=== PATIENT | female | born 1975 | race Caucasian/White ===

== ENCOUNTER 2016-12-29 07:05 | Day surgery (SDC) | payer BC ==
[2016-12-29] VITALS (31 sets, daily range): BP systolic 99–144; BP diastolic 54–89; PULSE 82–117; RESP 16–32; TEMP 96.7–98.5; O2SAT 95–100; Ht 152.4 cm; Wt 66.7 kg
[~2016-12-29] VITALS: Ht 152.4 cm; Wt 66.7 kg
[~2016-12-29 07:05] MED LIST: ALPR0.5T PO; IBUP-1724 PO; LIDOCAINE 1% (10mg/ml) 2ml SDV INJ ONE; LR 1,000 ML IV SCH
--- OUTSIDE RECORDS SUMMARY | 2016-12-29 07:13 | XMS REPORT | Summary of Care ---
Author Author Kira Santiago, Anamaria Organization Unknown Address [address] [place], [place] [id number] Phone Unavailable Care Team Providers Care Elastic Yarn Twister Helper Name Role Phone Mulu Ferris M.D. Unavailable Unavailable Anamaria Malone M.D. Unavailable Unavailable Adonay Ferris PP Unavailable Unavailable Unavailable Functional Status Functional Status Health Issues* Name Dates Details Functional status health issues are not documented Status: Cognitive Status Health Issues* Name Dates Details Cognitive status health issues are not documented Status: Problems Name Dates Details Adenoid hypertrophy (474.12, J35.2) Status: Active Chronic otitis media (382.9, H66.90) Status: Active Eustachian tube dysfunction (381.81, H69.80) Status: Active Hypertrophy of nasal turbinates (478.0, J34.3) Status: Active Cervicalgia (723.1, M54.2) Status: Active Cervical neuritis (723.4, M54.12) Status: Active Lump of breast, left (611.72, N63) Status: Active Abnormal uterine bleeding (626.9, N93.9) Status: Active Urinary, incontinence, stress female (625.6, N39.3) Status: Active Preoperative examination (V72.84, Z01.818) Status: Active Medications Name Dates Details Xanax 0.5 MG Oral Tablet TAKE 1/2 TO 1 TABLET BY MOUTH EVERY 6 HOURS NEEDED FOR ANXIETY Quantity: 24 Adonay Ferris M.D.* Started 18-May-2014 ActiveOrtho-Cyclen (28) 0.25-35 MG-MCG Oral Tablet Take one pill Three times daily x5 days, Then 1 pill twice daily for 7 days then pill until all active pills are gone * Quantity: 2 Refills: 0 Anamaria Malone M.D.* Started 28-Aug-2014 [id number] Tablet Disp Pack Ondansetron 4 MG Oral Tablet Dispersible 1 po q 8 hrs PRN * Quantity: 10 Refills: 0 Anamaria Malone M.D.* Started 28-Aug-2014 Active Allergies and Adverse Reactions Name Dates Details Latex Gloves MISC Status: Active Penicillins Status: Active Past Medical History Name Dates Details History of urinary tract infection (V13.02, Z87.440) Status: Resolved Procedures Procedure Dates Details History of Adenoidectomy History of Turbinectomy History of Ear Pressure Equalization Tube, Insertion, General Anesthesi History of Dilation And Curettage History of Biopsy Ovarian History of Appendectomy URINE CULTURE 5010 Ordered:28-Aug-2014 Urinalysis, Reflex to Microscopic or Culture PRN 8005 Ordered:28-Aug-2014 ULTRASOUND BREAST LEFT Ordered:23-Aug-2014 MAMMOGRAM-DIAG UNILATERAL FOR LUMP PAIN Ordered:23-Aug-2014 Immunization Name Dates Details Tdap (Adacel) Lot #: [id number] Administered on:23-Mar-2014 PPD Lot #: [id number] Administered on:17-Apr-2014 PPD Administered on:17-Apr-2014 Fluzone Quadrivalent 0.5 ML Intramuscular Suspension Lot #: [id number] Administered on:18-May-2014 Family History Unknown Family Member* Name Dates Details Family history of Alcohol addiction (303.90, F10.20) Comments: Family History Status: Active Family history of colon cancer (V16.0, Z80.0) Comments: Family History Status: Active Family history of lung cancer (V16.1, Z80.1) Comments: Family History Status: Active Mother* Name Dates Details Family history of malignant neoplasm of cervix uteri (V16.49, Z80.49) Status: Active Social History Name Dates Details Smoking Status* Former smoker Vital Signs Date Test Result Details 28-Aug-2014 13:37 BP Systolic 124 mm[Hg] Status: BP Diastolic 80 mm[Hg] Status: Weight 159.25 lb Status: Body Mass Index Calculated 30.09 kg/m2 Status: Body Surface Area Calculated 1.71 m2 Status: 23-Aug-2014 11:19 BP Systolic 115 mm[Hg] Status: BP Diastolic 73 mm[Hg] Status: Weight 157 lb Status: Height 61 in Status: Body Mass Index Calculated 29.67 kg/m2 Status: Body Surface Area Calculated 1.7 m2 Status: Results Date Description Value Details 28-Aug-2014 14:05 URINE TEST 8010 URINE TEST Negative (Better) Plan of Care Planned Observations* Name Dates Details Planned Goals not documented Goal Planned Encounters* Appointment; Provider: Anamaria Malone On 04-Sep-2014 14:45 * Appointment; Provider: Latoya Serna On 04-Sep-2014 13:45 Instructions * Instructions not documented Encounters Appointment; Anamaria Malone Encounter Diagnosis: Problem not documented On 28-Aug-2014 13:15 Appointment; Anamaria Malone Encounter Diagnosis: Problem not documented On 23-Aug-2014 11:00 Appointment; Ivory Trammell Encounter Diagnosis: Problem not documented On 18-May-2014 16:15 Appointment; Adonay Ferris Encounter Diagnosis: Problem not documented On 18-May-2014 15:00 Appointment; Adonay Ferris Encounter Diagnosis: Problem not documented On 17-Apr-2014 07:45 Appointment; Adonay Ferris Encounter Diagnosis: Problem not documented On 23-Mar-2014 08:00 Appointment; Adonay Ferris Encounter Diagnosis: Problem not documented On 20-Mar-2014 09:30 Appointment; Adonay Ferris Encounter Diagnosis: Problem not documented On 10:30 Appointment; Ramin Peña Encounter Diagnosis: Problem not documented On 15:15 Appointment; Bairon Bee Encounter Diagnosis: Problem not documented On 13:15 Appointment; Shamar De Dios Encounter Diagnosis: Problem not documented On 24-Dec-2013 12:30
--- OUTSIDE RECORDS SUMMARY | 2016-12-29 07:13 | XMS REPORT | Continuity of Care Document ---
Author Author [facility] Address Unknown Phone Unavailable Support Name Relationship Address Phone ERICK TOM MD Caregiver [address] [place] [address] NORMA OLEARY Next Of Kin [address] [place] [address] Insurance Providers Payer Name Policy Number Subscriber Name Relationship Workmans Comp Other [id number] [employer] Employ[employer] Problems Active Problems Medical Problem Onset Date Status Low back pain Unknown Acute Medications Current Home Medications Medication Dose Units Route Directions Days/Qty Instructions Start Date Alprazolam (Xanax) 0.5 Mg 0.5 Mg ORAL As Needed 09/01/16 Social History No social history. Hospital Discharge Instructions Current inpatient/outpatient. Discharge instructions are currently unavailable. Plan of Care Prescriptions Functional Status No functional status results. Allergies, Adverse Reactions, Alerts Allergen Type Severity Reaction Status Last Updated Penicillin Allergy Severe anaphylaxis Active 09/01/16 Azithromycin Allergy Mild Rash Active 09/01/16 latex Allergy Mild Rash Active 09/01/16 Immunizations No immunization records. Vital Signs Acute Vital Signs Vital Response Date/Time Temperature (Fahrenheit) 97.9 09/01/2016 4:41am Pulse 94 bpm 09/01/2016 4:41am Respirations 18 09/01/2016 4:41am Results No known relevant diagnostic tests, laboratory data and/or discharge summary. Procedures No known history of procedures. Encounters Encounter Location Arrival/Admit Date Discharge/Depart Date Attending Provider Registered Referred [facility] 09/01/16 3:23am ERICK TOM MD Departed Emergency Room [facility] 09/01/16 3:20am 09/01/16 4:43am ERICK TOM MD
--- OUTSIDE RECORDS SUMMARY | 2016-12-29 07:13 | XMS REPORT | Summary of Care ---
Author Author Kira Santiago, Anamaria Organization Unknown Address Unknown Phone Unavailable Care Team Providers Care Pin Machine Operator Name Role Phone Mulu Ferris M.D. Unavailable Unavailable Anamaria Malone M.D. Unavailable Unavailable Gerardo Aranda M.D. Unavailable Unavailable No Assigned PCP-Pt Confirmed Unavailable Unavailable Unavailable Unavailable Functional Status Name Dates Details Functional status health issues are not documented Status: Name Dates Details Cognitive status health issues are not documented Status: Problems Name Dates Details Adenoid hypertrophy (474.12, J35.2) Status: Active Chronic otitis media (382.9, H66.90) Status: Active Eustachian tube dysfunction (381.81, H69.80) Status: Active Hypertrophy of nasal turbinates (478.0, J34.3) Status: Active Cervicalgia (723.1, M54.2) Status: Active Cervical neuritis (723.4, M54.12) Status: Active Urinary, incontinence, stress female (625.6, N39.3) Status: Active Urinary symptom or sign (788.99, R39.9) Status: Active Dysuria (788.1, R30.0) Status: Active Frequency of urination (788.41, R35.0) Status: Active Urinary incontinence (788.30, R32) Status: Active Lump of breast, left (611.72, N63) Status: Active Fibrocystic mastopathy (610.1, N60.19) Status: Active Retention cyst of ovary (620.2, N83.209) Status: Active Bleeding after intercourse (626.7, N93.0) Status: Active Pelvic pain in female (625.9, R10.2) Status: Active Vaginal discharge (623.5, N89.8) Status: Active Menopausal symptoms (627.2, N95.1) Status: Active Medications Name Dates Details Pyridium 100 MG Oral Tablet TAKE 1 TABLET EVERY 6 HOURS NEEDED. Quantity: 20 Anamaria Malone M.D. * Start Active Xanax 0.5 MG Oral Tablet TAKE 1/2 TO 1 TABLET BY MOUTH EVERY 6 HOURS NEEDED FOR ANXIETY * Quantity: 24 Refills: 0 Adonay Ferris M.D. * Start 18-May-2014 Active Percocet 5-325 MG Oral Tablet * Refills: 0 Shefali Aranda M.D. * Start 05-Apr-2015 Active Nitrofurantoin Monohyd Macro 100 MG Oral Capsule TAKE 1 CAPSULE TWICE DAILY. * Quantity: 14 Refills: 0 Anamaria Malone M.D. * Start 18-Apr-2015 Active Allergies and Adverse Reactions Name Dates Details Latex Gloves MISC (Allergy) Status: Active Penicillins (Allergy) Status: Active Past Medical History Name Dates Details History of Abnormal uterine bleeding (626.9, N93.9) Status: Resolved History of menorrhagia (V13.29, Z87.42) Status: Resolved History of urinary tract infection (V13.02, Z87.440) Status: Resolved Procedures Procedure Dates Details History of Adenoidectomy History of Turbinectomy History of Ear Pressure Equalization Tube, Insertion, General Anesthesi History of Dilation And Curettage History of Biopsy Ovarian History of Appendectomy History of Hysterectomy Procedures not documented Immunization Name Dates Details Tdap (Adacel) Lot #: [id number] on: 23-Mar-2014 PPD Lot #: [id number] on: 17-Apr-2014 PPD on: 17-Apr-2014 Fluzone Quadrivalent 0.5 ML Intramuscular Suspension Lot #: [id number] on: 18-May-2014 Family History Name Dates Details Family history of Alcohol addiction (303.90, F10.20) Comments: Family History Status: Active Family history of colon cancer (V16.0, Z80.0) Comments: Family History Status: Active Family history of lung cancer (V16.1, Z80.1) Comments: Family History Status: Active Family history of malignant neoplasm of breast (V16.3, Z80.3) Comments: Family History Status: Active Family history of Ovarian cancer (183.0, C56.9) Comments: Family History Status: Active Name Dates Details Family history of malignant neoplasm of cervix uteri (V16.49, Z80.49) Status: Active Social History Name Dates Details - Status: Name Dates Details Former smoker Vital Signs Date Test Result Details No Known Vitals to report Results Date Description Value Details Results not documented Plan of Care Name Dates Details Planned Observations Planned Goals not documented Instructions Name Dates Details Instructions not documented Encounters Appointment; Anamaria Malone M.D. Encounter Diagnosis: Problem not documented On 11-Apr-2015 11:45 Appointment; Shefali Aranda M.D. Encounter Diagnosis: Problem not documented On 05-Apr-2015 15:15 Appointment; Anamaria Malone M.D. Encounter Diagnosis: Problem not documented On 11:30 Appointment; Ronny Salvador M.D.|Estella|Jack,MURIEL|Jack,MURIEL, Encounter Diagnosis: Problem not documented On 10:45 Appointment; Anamaria Malone M.D. Encounter Diagnosis: Problem not documented On 20-Nov-2014 13:15 Appointment; Hudson Smith M.D.,MURIEL, Encounter Diagnosis: Problem not documented On 08-Nov-2014 12:00 Appointment; Anamaria Malone M.D. Encounter Diagnosis: Problem not documented On 19-Oct-2014 10:15"
--- OUTSIDE RECORDS SUMMARY | 2016-12-29 07:13 | XMS REPORT | Summary of Care ---
Author Author John MCDANIEL, Alicia Organization Unknown Address [address] [place], [place] [address] Phone Unavailable Care Team Providers Care Lead Electrical Controls Engineer Name Role Phone Mulu Ferris M.D. Unavailable Unavailable Adonay Ferris PP Unavailable [...] of breast, left (611.72, N63) Status: Active Urinary, incontinence, stress female (625.6, N39.3) Status: Active Pelvic pain in female (625.9, R10.2) Status: Active Menorrhagia (626.2, N92.0) Status: Active Abnormal uterine bleeding (626.9, N93.9) Status: Active Urinary symptom or sign (788.99, R39.89) Status: Active Ovarian cyst (620.2, N83.20) Status: Active Dysuria (788.1, R30.0) Status: Active Frequency of urination (788.41, R35.0) Status: Active Medications Name Dates Details Xanax 0.5 MG Oral Tablet TAKE 1/2 TO 1 TABLET BY MOUTH EVERY 6 HOURS NEEDED FOR ANXIETY Quantity: 24 Adonay Ferris M.D.* Started 18-May-2014 Active Allergies and Adverse Reactions Name Dates [...] Ovarian History of Appendectomy History of Hysterectomy CYTOLOGY - URINE 4444 Ordered:08-Nov-2014 URINE CULTURE 5010 Ordered:08-Nov-2014 OB Dept- Ultrasound Pelvic Sonogram Ordered:03-Oct-2014 OB Dept- Ultrasound Follow up Pelvic Sonogram Ordered:16-Oct-2014 Immunization Name Dates Details Tdap (Adacel) Lot #: [id number] Administered on:23-Mar-2014 PPD Lot #: [id number] Administered on:17-Apr-2014 PPD Administered on:17-Apr-2014 Fluzone Quadrivalent 0.5 ML Intramuscular Suspension Lot #: [id number] Administered on:18-May-2014 Family History Unknown Family Member* [...] (183.0, C56.9) Comments: Family History Status: Active Mother* Name Dates Details Family history of malignant neoplasm of cervix uteri (V16.49, Z80.49) Status: Active Social History Name Dates Details Smoking Status* Former smoker Vital Signs Date Test Result Details 19-Oct-2014 10:39 BP Systolic 112 mm[Hg] Status: BP Diastolic 76 mm[Hg] Status: Weight 155.25 lb Status: Body Mass Index Calculated 29.33 kg/m2 Status: Body Surface Area Calculated 1.7 m2 Status: Results Date Description Value Details 11-Oct-2014 11:11 Urinalysis, Reflex to Microscopic or Culture PRN 8005 pH 7.5 (Better) Range: 5.0-7.5 SP GRAVITY 1.020 (Better) Range: 1.010-1.030 APPEARANCE CLEAR (Better) Range: Clear COLOR YELLOW (Better) Range: Straw-Yellow PROTEIN NEGATIVE mg/dL (Better) Range: Negative-Trace GLUCOSE NEGATIVE mg/dL (Better) Range: Negative KETONE NEGATIVE mg/dL (Better) Range: Negative BILIRUB NEGATIVE (Better) Range: Negative BLOOD MODERATE (Abnormal) Range: Negative UROBIL 0.2 EU/dL (Better) Range: 0.2-1.0 NITRITE NEGATIVE (Better) Range: Negative LEUK NEGATIVE (Better) Range: Negative 11:11 Urine Microscopic UMIC WBC 0-2 /HPF (Better) Range: 0-5 RBC 3-5 /HPF (Abnormal) Range: 0-2 MUCUS 2+ /LPF (Better) Range: Negative-2+ BACTERIA 1+ /HPF (Abnormal) Range: Negative-Trace EPITH 11-20 /HPF (Abnormal) Range: 0-10 12-Oct-2014 08:14 URINE CULTURE 5010 *URINE CULTURE Microbiology results (Better) Comments: URINE SOURCE: Clean CatchCOLONY COUNT>100,000 cfu/ml. of 3 or more colony types of gram positive bacteria. (SUGGESTIVE OF CONTAMINATION)----- Plan of Care Planned Observations* Name Dates Details Planned Goals not documented Goal Planned Encounters* Appointment; Provider: Hudson Smith On 22-Nov-2014 14:00 * Appointment; Provider: Anamaria Malone On 20-Nov-2014 13:15 * Appointment; Provider: Anamaria Malone On 03-Oct-2014 13:00 Instructions * Instructions not documented Encounters Appointment; Hudson Smith Encounter Diagnosis: Problem not documented On 08-Nov-2014 12:00 Appointment; Anamaria Malone Encounter Diagnosis: Problem not documented On 19-Oct-2014 10:15 Appointment; Anamaria Malone Encounter Diagnosis: Problem not documented On 03-Oct-2014 11:45 Appointment; Latoya Serna Encounter Diagnosis: Problem not documented On 02-Oct-2014 11:00 Appointment; Latoya Serna Encounter Diagnosis: Problem not documented On 13-Sep-2014 09:00 Appointment; Anamaria Malone Encounter Diagnosis: Problem not documented On 12-Sep-2014 14:00 Appointment; Anamaria Malone Encounter Diagnosis: Problem not documented On 01-Sep-2014 07:00 Appointment; Anamaria Malone Encounter Diagnosis: Problem not documented On 28-Aug-2014 13:15 Appointment; Anamaria Malone Encounter Diagnosis: Problem not documented On 23-Aug-2014 11:00 Appointment; Ivory Trammell Encounter Diagnosis: Problem not documented On 18-May-2014 16:15 Appointment; Adonay Ferris Encounter Diagnosis: Problem not documented On 18-May-2014 15:00 Appointment; dAonay Ferris Encounter Diagnosis: Problem not documented On [...]
--- OUTSIDE RECORDS SUMMARY | 2016-12-29 07:13 | XMS REPORT | CCD ---
Author Author JERMAINE DOMINGUEZ Organization Unknown Address [address], [place] [address] Phone 0 Care Team Providers Care Supervisor Research Shop Name Role Phone FELICIANO SALDANA Attending Physician 0 Vital Signs Unknown or Not Available. Allergies Allergy Code Allergy Type Reaction Status PENICILLIN 920238 Drug allergy Active DEMEROL 015327 Drug allergy Active ZITHROMAX 480549 Drug allergy Active Procedures Unknown or Not Available. History of Immunizations Unknown or Not Available. Problems Unknown or Not Available. Results Unknown or Not Available. Active Medications Unknown or Not Available. Medications Administered During Visit Unknown or Not Available. Encounters Encounter Diagnosis Diagnosis Code Start Date Encounter for screening for respiratory tuberculosis Z111 05/13/2016 Social History Smoking Status Code Start Date End Date Unknown if ever smoked [id number] Patient Decision Aids Unknown or Not Available. Discharge Instructions You were admitted to [facility] on 05/13/2016 15:19 with a principal diagnosis of Encounter for screening for respiratory tuberculosis You were discharged from [facility] on 05/13/2016 15:19 Should you have any questions prior to discharge, please contact a member of your healthcare team. If you have left the hospital and have any questions, please contact your primary care physician. Chief Complaint and Reason For Visit Chief Complaint Date of Onset LAB Function Status Unknown or Not Available. Plan of Care Unknown or Not Available. Referral/Transition of Care Unknown or Not Available.
--- OUTSIDE RECORDS SUMMARY | 2016-12-29 07:13 | XMS REPORT | Summary of Care ---
Author Author Kira Santiago, Anamaria Organization Unknown Address [address] [place], [place] [address] Phone Unavailable Care Team Providers Care Database Admin Name Role Phone Mulu Ferris M.D. Unavailable [...] Status: Active Menorrhagia (626.2, N92.0) Status: Active Preoperative examination (V72.84, Z01.818) Status: [...] Refills: 0 Anamaria Malone M.D.* Started 28-Aug-2014 [id number] Tablet Disp Pack Ondansetron 4 MG Oral [...] History of Biopsy Ovarian History of Appendectomy Urinalysis, Reflex to Microscopic or Culture PRN 8005 Ordered:28-Aug-2014 URINE CULTURE 5010 Ordered:28-Aug-2014 MAMMOGRAM-DIAG UNILATERAL FOR LUMP PAIN Ordered:23-Aug-2014 ULTRASOUND BREAST LEFT Ordered:23-Aug-2014 Immunization Name Dates Details Tdap (Adacel) Lot #: [id number] Administered on:23-Mar-2014 PPD Lot #: [id number] Administered on:17-Apr-2014 PPD Administered on:17-Apr-2014 Fluzone Quadrivalent 0.5 ML Intramuscular Suspension Lot #: [id number] Administered on:18-May-2014 Family History Unknown Family Member* [...] Status: Results Date Description Value Details 28-Aug-2014 12:45 OB Dept- Ultrasound Pelvic Sonogram Comments: Exam Date: 11:16Dictation Date: 12:45 XOB PELVIC SONO IN WOMENS ROOM (Better) 14:05 URINE TEST 8010 URINE TEST Negative (Better) 14:54 CBC w/ Auto Diff 7150 WBC 4.7 K/uL (Better) Range: 4.5-11.0 RBC 4.40 mil/uL (Better) Range: 3.60-5.00 HGB 12.9 g/dL (Better) Range: 12.0-16.0 HCT 38.9 % (Better) Range: 36.0-48.0 MCV 88.4 fL (Better) Range: 80.0-99.0 MCH 29.3 pg (Better) Range: 27.3-32.5 MCHC 33.1 % (Better) Range: 32.0-36.0 RDW 13.7 % (Better) Range: 11.6-14.8 PLATELETS 308 K/uL (Better) Range: 150-400 MPV 8.2 fL (Better) Range: 6.0-11.0 %NEUTRO 52.7 % (Better) Range: 37.0-80.0 %LYMPHS 39.5 % (Better) Range: 13.0-50.0 %MONO 3.6 % (Better) Range: 0.0-12.0 %EOS 1.0 % (Better) Range: 0.0-7.0 %BASO 0.4 % (Better) Range: 0.0-2.5 %QUE 2.8 % (Better) Range: 0.0-5.0 NEUTRO 2.5 K/uL (Better) Range: 2.0-6.9 LYMPHS 1.8 K/uL (Better) Range: 0.6-3.4 MONOS 0.2 K/uL (Better) Range: 0.0-0.9 EOS 0.1 K/uL (Better) Range: 0.0-0.7 BASO 0.0 K/uL (Better) Range: 0.0-0.2 15:14 BASIC METABOLIC PROFILE 1210 SODIUM 141 mmol/L (Better) Range: 133-144 POTASSIUM 4.3 mmol/L (Better) Range: 3.5-5.1 CHLORIDE 105 mmol/L (Better) Range: 98-110 CARBON DIOXIDE 26.2 mmol/L (Better) Range: 23.0-33.0 ANION GAP 10 mmol/L (Better) Range: 6-16 BUN 11 mg/dL (Better) Range: 7-18 CREATININE, SERUM 0.55 mg/dL (Better) Range: 0.43-1.13 EST GFR, >60 ml/min (Better) Range: >60 EST GFR, NON-AFR ENGLISH >60 ml/min (Better) Range: >60 Comments: EST GFR is reported in ml/min per 1.73 m2 of body surface area. For -Bhutanese, please multiple result by 1.2.----- BUN:CREATININE RATIO 20 (Better) GLUCOSE 82 mg/dL (Better) Range: 70-100 CALCIUM 8.8 mg/dL (Better) Range: 8.5-10.1 Plan of Care Planned Observations* Name Dates Details Planned Goals not documented Goal Planned Encounters* Appointment; Provider: Anamaria Malone On 04-Sep-2014 14:45 * Appointment; Provider: Latoya Serna On 04-Sep-2014 13:45 * Appointment; Provider: Anamaria Malone On 01-Sep-2014 07:00 Instructions * Instructions not documented Encounters Appointment; [...]
--- OUTSIDE RECORDS SUMMARY | 2016-12-29 07:13 | XMS REPORT | Summary of Care ---
Author Author Ramin Peña M.D. Unknown Address Unknown Phone Unavailable Care Team Providers Care Marine Electronics Technician Name Role Phone Josy Adonay Unavailable Unavailable Unavailable Unavailable Functional Status Functional Status Health Issues* Name Dates Details No known functional status health issues Status: Cognitive Status Health Issues* Name Dates Details No known cognitive status health issues Status: Problems Name Dates Details Adenoid hypertrophy (474.12, J35.2) Status: Active Chronic otitis media (382.9, H66.90) Status: Active Eustachian tube dysfunction (381.81, H69.80) Status: Active Hypertrophy of nasal turbinates (478.0, J34.3) Status: Active Urinary tract infection (599.0, N39.0) Status: Active Medications Name Dates Details Xanax 2 MG Oral Tablet * Started Active Allergies and Adverse Reactions Name Dates Details Penicillins Status: Active Latex Gloves MISC Status: Active Procedures Procedure Dates Details Adenoidectomy Turbinectomy Ear Pressure Equalization Tube, Insertion, General Anesthesi Dilation And Curettage Biopsy Ovarian Urinalysis, Reflex to Microscopic or Culture PRN 8005 Immunization Name Dates Details Immunizations not documented Social History Name Dates Details Former smoker (V15.82, Z87.891) Smoking Status* Former smoker Vital Signs Date Test Result Details 13:14 Heart Rate 81 /min Status: Temperature 98.2 f Status: Weight 142 lb Status: Results Date Description Value Details Results not documented Plan of Care Instructions* Instructions not documented Planned Observations* Name Dates Details Planned Goals not documented Goal Planned Encounters* Appointment; Provider: Adonay Ferris On 10:30 * Appointment; Provider: Ramin Peña On 15:15 Instructions * No Known Instructions Encounters Appointment; Bairon Bee Encounter Diagnosis: Problem not documented On 13:15 Appointment; Shamar De Dios Encounter Diagnosis: Problem not documented On 24-Dec-2013 12:30
--- OUTSIDE RECORDS SUMMARY | 2016-12-29 07:13 | XMS REPORT | Summary of Care ---
Author Author Luis Santiago, FACS, ,, [place] Organization Unknown Address [address], [place] [address] Phone Unavailable Care Team Providers Care Surfboard Maker Name Role Phone Josy Santiago, Mulu Unavailable Unavailable Adonay Ferris PP Unavailable Unavailable [...] Active Urinary incontinence (788.30, R32) Status: Active Medications Name Dates Details Xanax [...] Ovarian History of Appendectomy History of Hysterectomy URINE CULTURE 5010 Ordered:08-Nov-2014 OB Dept- Ultrasound Pelvic Sonogram Ordered:03-Oct-2014 OB Dept- Ultrasound Follow up Pelvic Sonogram Ordered:16-Oct-2014 Immunization Name Dates Details Tdap (Adacel) Lot #: [id number] Administered on:23-Mar-2014 PPD Lot #: [id number] Administered on:17-Apr-2014 PPD Administered on:17-Apr-2014 Fluzone Quadrivalent 0.5 ML Intramuscular Suspension Lot #: [id number] Administered on:18-May-2014 Family History Unknown Family Member* [...] of gram positive bacteria. (SUGGESTIVE OF CONTAMINATION)----- 08-Nov-2014 15:08 CYTOLOGY - URINE 4444 CYTOLOGY Specimen referred to [facility]. Report to follow. (Better) Plan of Care Planned Observations* Name [...]
--- OUTSIDE RECORDS SUMMARY | 2016-12-29 07:13 | XMS REPORT | Summary of Care ---
Author Author Kira Santiago, Anamaria Organization Unknown Address [address], [place] [phone] Phone Unavailable Care Team Providers Care Analysis Analyst Name Role Phone Mulu Ferris M.D. Unavailable [...] symptom or sign (788.99, R39.9) Status: Active Ovarian cyst (620.2, N83.20) Status: Active Dysuria (788.1, R30.0) Status: Active Frequency of urination (788.41, R35.0) Status: Active Urinary incontinence (788.30, R32) Status: Active Medications Name Dates Details Xanax 0.5 MG Oral Tablet TAKE 1/2 TO 1 TABLET BY MOUTH EVERY 6 HOURS NEEDED FOR ANXIETY Quantity: 24 Adonay Ferris M.D.* Started 18-May-2014 ActiveAcetaminophen-Codeine 300-30 MG Oral Tablet Take 1-2 tablets every 6 hours as needed. * Quantity: 15 Refills: 0 Anamaria Malone M.D.* Started 29-Dec-2014 Active Allergies and Adverse Reactions Name Dates [...] Ovarian History of Appendectomy History of Hysterectomy OB Dept- Ultrasound Pelvic Sonogram Ordered:29-Dec-2014 Immunization Name Dates Details Tdap (Adacel) Lot #: [id number] Administered on:23-Mar-2014 PPD Lot #: [id number] Administered on:17-Apr-2014 PPD Administered on:17-Apr-2014 Fluzone Quadrivalent 0.5 ML Intramuscular Suspension Lot #: [id number] Administered on:18-May-2014 Family History Unknown Family Member* [...] to report Results Date Description Value Details 29-Dec-2014 14:41 OB Dept- Ultrasound Endovag Pelvic Sonogram Comments: Exam Date: 12/29/2014 13:03Dictation Date: 12/29/2014 14:41 XOB EV SONO (Better) Plan of Care Planned Observations* Name Dates Details Planned Goals not documented Goal Planned Encounters* Appointment; Provider: Ronny Salvador On 10:45 * Appointment; Provider: [facility] On 29-Dec-2014 13:00 * Appointment; Provider: Anamaria Malone On 03-Oct-2014 13:00 Instructions * Instructions not documented Encounters Appointment; Anamaria Malone Encounter Diagnosis: Problem not documented On 20-Nov-2014 13:15 Appointment; [place] Encounter Diagnosis: Problem not [...]
--- OUTSIDE RECORDS SUMMARY | 2016-12-29 07:13 | XMS REPORT | Summary of Care ---
Author Author Kira Santiago, Anamaria Organization Unknown Address [address] [place], [place] [phone] Phone Unavailable Care Team Providers Care Line Analyst Name Role Phone Josy Santiago, Mulu Unavailable Unavailable Anamaria Malone M.D. Unavailable Unavailable [...] Abnormal uterine bleeding (626.9, N93.9) Status: Active Medications Name Dates Details Xanax [...] Refills: 0 Anamaria Malone M.D.* Started 28-Aug-2014 [id number] Tablet Disp Pack Ondansetron 4 MG Oral [...] PRN 8005 Ordered:28-Aug-2014 URINE CULTURE 5010 Ordered:28-Aug-2014 OB Dept- Ultrasound Pelvic Sonogram Ordered:03-Oct-2014 MAMMOGRAM-DIAG UNILATERAL FOR LUMP PAIN Ordered:23-Aug-2014 Immunization Name Dates Details Tdap (Adacel) Lot #: [id number] Administered on:23-Mar-2014 PPD Lot #: [id number] Administered on:17-Apr-2014 PPD Administered on:17-Apr-2014 Fluzone Quadrivalent 0.5 ML Intramuscular Suspension Lot #: [id number] Administered on:18-May-2014 Family History Unknown Family Member* [...] smoker Vital Signs Date Test Result Details 02-Oct-2014 11:05 BP Systolic 118 mm[Hg] Status: BP Diastolic 78 mm[Hg] Status: Weight 162 lb Status: Body Mass Index Calculated 30.61 kg/m2 Status: Body Surface Area Calculated 1.73 m2 Status: 12-Sep-2014 13:42 BP Systolic 108 mm[Hg] Status: BP Diastolic 74 mm[Hg] Status: Weight 161 lb Status: Body Mass Index Calculated 30.42 kg/m2 Status: Body Surface Area Calculated 1.72 m2 Status: Results Date Description Value Details Results not documented Plan of Care Planned Observations* Name Dates Details Planned Goals not documented Goal Planned Encounters* Appointment; Provider: Latoya Serna On 17-Oct-2014 07:30 * Appointment; Provider: Anamaria Malone On 03-Oct-2014 [...]
--- OUTSIDE RECORDS SUMMARY | 2016-12-29 07:13 | XMS REPORT | Summary of Care ---
Author Author Adonay Ferris M.D. Organization Unknown Address [address], [place] [phone] Phone Unavailable Care Team Providers Care Acquisition Advisor Name Role Phone Mulu Ferris M.D. Unavailable [...] Urinary tract infection (599.0, N39.0) Status: Active Immunization counseling (V65.49, Z71.89) Status: Active School health examination (V70.5, Z02.89) Status: Active URI (upper respiratory infection) (465.9, J06.9) Status: Active Cervicalgia (723.1, M54.2) Status: Active Cervical neuritis (723.4, M54.12) Status: Active Medications Name Dates Details Xanax 0.5 MG Oral Tablet TAKE 1/2 TO 1 TABLET BY MOUTH EVERY 6 HOURS NEEDED FOR ANXIETY Quantity: 24 Adonay Ferris M.D.* Started 18-May-2014 ActiveMeloxicam 7.5 MG Oral Tablet TAKE 1 TABLET TWICE DAILY. * Quantity: 30 Refills: 0 Adonay Ferris M.D.* Started 18-May-2014 ActiveMethocarbamol 750 MG Oral Tablet take one every 6 hours as needed for headache and neck spasms * Quantity: 30 Refills: 1 Adonay Ferris M.D.* Started 18-May-2014 Active Allergies and Adverse Reactions Name Dates Details Latex Gloves MISC Status: Active Penicillins Status: Active Procedures Procedure Dates Details History of Adenoidectomy History of Turbinectomy History of Ear Pressure Equalization Tube, Insertion, General Anesthesi History of Dilation And Curettage History of Biopsy Ovarian Procedures not documented Immunization Name Dates Details Tdap (Adacel) Lot #: [id number] Administered on:23-Mar-2014 PPD Lot #: [id number] Administered on:17-Apr-2014 PPD Administered on:17-Apr-2014 Fluzone Quadrivalent 0.5 ML Intramuscular Suspension Lot #: [id number] Administered on:18-May-2014 Social History Name Dates Details Smoking Status* Former smoker Vital Signs Date Test Result Details No Known Vitals to report Results Date Description Value Details Results not documented Plan of Care Planned Observations* Name Dates Details Planned Goals not documented Goal Planned Encounters* Appointment; Provider: Anamaria Malone On 23-Aug-2014 11:00 Instructions * Instructions not documented Encounters Appointment; Ivory Trammell Encounter Diagnosis: Problem not [...]
--- OUTSIDE RECORDS SUMMARY | 2016-12-29 07:13 | XMS REPORT | Summary of Care ---
Author Author Adonay Ferris M.D. Organization Unknown Address [address], [place] [phone] Phone Unavailable Care Team Providers Care Laborer [employer]er Farm Name Role Phone Mulu Ferris M.D. Unavailable [...] Active Preoperative examination (V72.84, Z01.818) Status: Active Menorrhagia (626.2, N92.0) Status: Active Pelvic pain in female (625.9, R10.2) Status: Active Medications Name Dates Details Xanax [...] Refills: 0 Anamaria Malone M.D.* Started 28-Aug-2014 [id number] Tablet Disp Pack Ondansetron 4 MG Oral [...] to Microscopic or Culture PRN 8005 Ordered:28-Aug-2014 MAMMOGRAM-DIAG UNILATERAL FOR LUMP PAIN Ordered:23-Aug-2014 Immunization Name Dates Details Tdap (Adacel) Lot #: [id number] Administered on:23-Mar-2014 PPD Lot #: [id number] Administered on:17-Apr-2014 PPD Administered on:17-Apr-2014 Fluzone Quadrivalent 0.5 ML Intramuscular Suspension Lot #: [id number] Administered on:18-May-2014 Family History Unknown Family Member* [...] smoker Vital Signs Date Test Result Details 12-Sep-2014 13:42 BP Systolic 108 mm[Hg] Status: BP Diastolic 74 mm[Hg] Status: Weight 161 lb Status: Body Mass Index Calculated 30.42 kg/m2 Status: Body Surface Area Calculated 1.72 m2 Status: 28-Aug-2014 13:37 BP Systolic 124 mm[Hg] Status: [...] ml/min (Better) Range: >60 EST GFR, NON-AFR ARMENIAN >60 ml/min (Better) Range: >60 Comments: EST GFR is reported in ml/min per 1.73 m2 of body surface area. For -[place]ankan, please multiple result by 1.2.----- BUN:CREATININE RATIO 20 (Better) GLUCOSE 82 mg/dL (Better) Range: 70-100 CALCIUM 8.8 mg/dL (Better) Range: 8.5-10.1 30-Aug-2014 10:57 MAMMOGRAM-DIAG BILATERAL FOR LUMP OR PAIN Comments: Exam Date: 10:21Dictation Date: 10:57 XM DIAG SOFIA FOR LUMP OR PAIN (Better) 11:12 ULTRASOUND BREAST LEFT Comments: Exam Date: 10: 59Dictation Date: 11:12 XS BREAST LEFT (Better) Plan of Care Planned Observations* Name Dates Details Planned Goals not documented Goal Instructions * Instructions not documented Encounters Appointment; Latoya Serna Encounter Diagnosis: Problem not [...]
--- OUTSIDE RECORDS SUMMARY | 2016-12-29 07:13 | XMS REPORT ---
Author Author GENERATED, SYSTEM Organization Unknown Address Unknown Phone Unavailable Care Team Providers Care Dopster Name Role Phone MD SIS, VANESSA [phone] Reason For Visit Chief Complaint 788.1 Social History Functional Status Vital Signs Results Problems Encounter Diagnosis No relevant problems exist. Encounters Encounter Diagnosis No relevant problems exist. Plan of Care Procedures * Completed davinci laparoscopic assisted hysterectomy bilateral salpingectomy right oophorectomy, by MD JUJU ANACOCO, on 10/03/2014 1:37 PM * Completed Procedure Code: 05193 Procedure Name: not valued, on 10/03/2014 12: 00 AM * Completed , on 06/09/2009 12:00 AM Immunizations No immunizations administered or ordered. Hospital Course Hospital Discharge Instructions Allergies, Adverse Reactions, Alerts * Penicillins causes Anaphylaxis. * Latex causes Rash. * IV Contrast Allergy has not been assessed. Medication Medication reconciliation has not been performed.
--- OUTSIDE RECORDS SUMMARY | 2016-12-29 07:14 | XMS REPORT | Summary of Care ---
Author Author Shefali Aranda M.D. Unknown Address [address], [place] [address] Phone Unavailable Care Team Providers Care Soil Field Technician Name Role Phone Mulu Ferris M.D. Unavailable Unavailable Gerardo Aranda M.D. Unavailable Unavailable Adonay Ferris PP Unavailable [...] Status: Active Retention cyst of ovary (620.2, N83.20) Status: Active Pelvic pain in female (625.9, R10.2) Status: Active Bleeding after intercourse (626.7, N93.0) Status: Active Medications Name Dates Details Xanax 0.5 MG Oral Tablet TAKE 1/2 TO 1 TABLET BY MOUTH EVERY 6 HOURS NEEDED FOR ANXIETY Quantity: 24 Adonay Ferris M.D.* Started 18-May-2014 ActivePercocet 5-325 MG Oral Tablet * Refills: 0 Shefali Aranda M.D.* Started 05-Apr-2015 Active Allergies and Adverse Reactions Name Dates [...] Name Dates Details Tdap (Adacel) Lot #: [id number] Administered on:23-Mar-2014 PPD Lot #: [id number] Administered on:17-Apr-2014 PPD Administered on:17-Apr-2014 Fluzone Quadrivalent 0.5 ML Intramuscular Suspension Lot #: [id number] Administered on:18-May-2014 Family History Unknown Family Member* [...] smoker Vital Signs Date Test Result Details 05-Apr-2015 15:12 BP Systolic 118 mm[Hg] Status: BP Diastolic 80 mm[Hg] Status: Weight 155.4 lb Status: Body Mass Index Calculated 29.36 kg/m2 Status: Body Surface Area Calculated 1.7 m2 Status: Results Date Description Value Details 05-Apr-2015 16:53 CT AB/ PEL WITH IV AND ORAL CONTRAST Comments: Exam Date: 04/05/2015 15:55Dictation Date: 04/05/2015 16:53 XC AB/PEL 45 MIN PREP (Better) Plan of Care Planned Observations* Name Dates Details Planned Goals not documented Goal Planned Encounters* Appointment; Provider: Ronny Salvador On 24-Apr-2015 10:00 * Appointment; Provider: [facility] On 18-Apr-2015 16:00 * Appointment; Provider: Anamaria Malone On 11-Apr-2015 11:45 * Appointment; Provider: [facility] On 05-Apr-2015 16:30 * Appointment; Provider: [facility] On 29-Dec-2014 13:00 * Appointment; Provider: Anamaria Malone On 03-Oct-2014 13:00 Instructions * Instructions not documented Encounters Appointment; Shefali Aranda Encounter Diagnosis: Problem not documented On 05-Apr-2015 15:15 Appointment; Anamaria Malone Encounter Diagnosis: Problem not documented On 11:30 Appointment; Ronny Salvador Encounter Diagnosis: Problem not documented On 10:45 Appointment; Anamaria Malone Encounter Diagnosis: Problem not [...]
--- OUTSIDE RECORDS SUMMARY | 2016-12-29 07:14 | XMS REPORT | Summary of Care ---
Author Author Shefali Aranda M.D. Unknown Address [address], [place] [address] Phone Unavailable Care Team Providers Care Cashier And Waiter/Waitress Name Role Phone Mulu Ferris M.D. Unavailable [...] cyst of ovary (620.2, N83.20) Status: Active Bleeding after intercourse (626.7, N93.0) [...] Name Dates Details Tdap (Adacel) Lot #: [id number] Administered on:23-Mar-2014 PPD Lot #: [id number] Administered on:17-Apr-2014 PPD Administered on:17-Apr-2014 Fluzone Quadrivalent 0.5 ML Intramuscular Suspension Lot #: [id number] Administered on:18-May-2014 Family History Unknown Family Member* [...]
--- OUTSIDE RECORDS SUMMARY | 2016-12-29 07:14 | XMS REPORT | Summary of Care ---
Author Author Modesto Santiago, FACS,, Ronny Organization Unknown Address [address], [place] [address] Phone Unavailable Care Team Providers Care Batter Depositor Name Role Phone Josy Santiago, Mulu Unavailable Unavailable Kira Santiago, Anamaria Unavailable Unavailable Adonay Ferris PP Unavailable Unavailable [...] Active Fibrocystic mastopathy (610.1, N60.19) Status: Active Medications Name Dates Details Xanax [...] Hysterectomy OB Dept- Ultrasound Pelvic Sonogram Ordered:29-Dec-2014 ULTRASOUND BREAST LEFT Ordered: Immunization Name Dates Details Tdap (Adacel) Lot #: [id number] Administered on:23-Mar-2014 PPD Lot #: [id number] Administered on:17-Apr-2014 PPD Administered on:17-Apr-2014 Fluzone Quadrivalent 0.5 ML Intramuscular Suspension Lot #: [id number] Administered on:18-May-2014 Family History Unknown Family Member* [...] smoker Vital Signs Date Test Result Details 10:47 BP Systolic 121 mm[Hg] Status: BP Diastolic 81 mm[Hg] Status: Heart Rate 78 /min Status: Temperature 98.5 f Status: Weight 163 lb Status: Height 61 in Status: Body Mass Index Calculated 30.8 kg/m2 Status: Body Surface Area Calculated 1.73 m2 Status: Results Date Description Value Details 29-Dec-2014 14:41 OB Dept- Ultrasound Endovag Pelvic Sonogram Comments: Exam Date: 12/29/2014 13:03Dictation Date: 12/29/2014 14:41 XOB EV SONO (Better) Plan of Care Planned Observations* Name Dates Details Planned Goals not documented Goal Planned Encounters* Appointment; Provider: [facility] On 29-Dec-2014 13:00 * Appointment; Provider: Anamaria Malone On 03-Oct-2014 13:00 Instructions * Instructions not documented Encounters Appointment; Ronny Salvador Encounter Diagnosis: Problem not [...]
--- OUTSIDE RECORDS SUMMARY | 2016-12-29 07:14 | XMS REPORT | CCD ---
Author Author JERMAINE DOMINGUEZ Organization Unknown Address [address], [place] [address] Phone 0 Care Team Providers Care Seat Cover Cutter Name Role Phone FELICIANO SALDANA Attending Physician 0 Vital Signs Unknown or Not Available. Allergies Unknown or Not Available. Procedures Unknown or Not Available. History of Immunizations Unknown or Not Available. Problems Unknown or Not Available. Results COMP METABOLIC - Collect Date/Time: 02/06/2016 15:32 Test Name Code Test Result Test Units Test Ref Range GLUCOSE 86 mg/dL L=70 H=110 BUN 16 mg/dL L=7 H=18 CREATININE 0.88 mg/ dL L=0.60 H=1.30 AGE 40 YEARS GFR 71.9 SODIUM 139 mmol/L L=136 H=145 POTASSIUM 3.7 mmol/ L L=3.5 H=5.1 CHLORIDE 103 mmol/L L=98 H=107 CO2 28 mmol/L L=21 H=32 CALCIUM 8.9 mg/dL L=8.5 H=10.1 AST 14 U/L L=15 H=37 ALT 20 U/L L=12 H=78 ALKALINE PHOS 73 U/ L L=50 H=136 TOTAL PROTEIN 6.8 g/ dL L=6.4 H=8.2 ALBUMIN 3.6 g/dL L=3.4 H=5.0 TOTAL BILI 0.30 mg/ dL L=0.00 H=1.00 THYROXINE (T4) FREE - Collect Date/Time: 02/06/2016 15:32 Test Name Code Test Result Test Units Test Ref Range FT4 0.90 ng/dL L=0.76 H=1.46 TSH - Collect Date/Time: 02/06/2016 15:32 Test Name Code Test Result Test Units Test Ref Range TSH 1.12 uIU/mL L=0.36 H=3.74 CBC W/ DIFF - Collect Date/Time: 02/06/2016 15:32 Test Name Code Test Result Test Units Test Ref Range WBC 7.1 x10^3 L=4.8 H=10.8 RBC 4.74 x10^6 L=4.20 H=5.40 HEMOGLOBIN 13.8 g/ dL L=12.0 H=16.0 HEMATOCRIT 41.2 % L=37.0 H=47.0 MCV 87 fL L=80 H=100 MCH 29.1 pg L=27.0 H=33.0 MCHC 33.5 g/dL L=33.0 H=37.0 RDW 12.5 % L=11.5 H=14.5 PLATELETS 262 x10^3 L=150 H=450 MPV 8.9 fL L=7.8 H=11.0 NEUTROPHILS 50.6 % L=40.0 H=80.0 LYMPHOCYTES 39.8 % L=20.0 H=45.0 MONOCYTES 6.1 % L=0.0 H=10.0 EOSINOPHILS 2.2 % L=0.0 H=5.0 BASOPHILS 1.3 % L=0.0 H=2.0 REFLEX MAN DIFF NO N /A H. PYLORI IGG, RAPID - Collect Date/Time: 02/06/2016 15:32 Test Name Code Test Result Test Units Test Ref Range H. PYLORI IGG, RAPID NEGATIVE N/A NORMAL: NEGATIVE UA AUTO W/ MICRO - Collect Date/Time: 02/06/2016 15:32 Test Name Code Test Result Test Units Test Ref Range COLOR Yellow N/A NORMAL: Yellow APPEARANCE Clear N/ A NORMAL: Clear GLUCOSE Negative N/ A NORMAL: Negative BILIRUBIN Negative N /A NORMAL: Negative KETONE Negative N/A NORMAL: Negative SPEC GRAVITY >=1.030 N/A NORMAL: 1.005-1.030 BLOOD Negative N/A NORMAL: Negative PROTEIN Negative N/ A NORMAL: Negative PH 6.0 N/A NORMAL: 5.0-8.0 UROBILINOGEN 0.2 N/ A NORMAL: Negative NITRITE Negative N/ A NORMAL: Negative LEUKOCYTES Negative N/A NORMAL: Negative MICRO RBC None Seen N/A NORMAL: 0-2 MICRO WBC 0-2 N/A NORMAL: 0-2 BACTERIA 1+ N/A NORMAL: None-Trace EPI CELLS 10-15 N/A NORMAL: 0-15 MUCUS Small N/A NORMAL: None-Small AMORPHOUS None Seen N/A NORMAL: None Seen YEAST None Seen N/A NORMAL: None Seen CRYSTALS None Seen N /A NORMAL: None Seen CAST None Seen N/A NORMAL: None Seen URINE CULTURE? NO N/ A Active Medications Unknown or Not Available. Medications Administered During Visit Unknown or Not Available. Encounters Encounter Diagnosis Diagnosis Code Start Date Other fatigue [id number] 02/06/2016 Social History Smoking Status Code Start Date End Date Unknown if ever smoked [id number] Patient Decision Aids Unknown or Not Available. Discharge Instructions You were admitted to [facility] on 02/06/2016 15:24 with a principal diagnosis of Other fatigue You had the following tests done: CBC W / DIFF COMP METABOLIC H. PYLORI IGG, RAPID THYROXINE (T4) FREE TSH UA AUTO W/ MICRO You were discharged from [facility] on 02/06/2016 15:24 Should you have any questions prior to [...]
--- OUTSIDE RECORDS SUMMARY | 2016-12-29 07:14 | XMS REPORT | Summary of Care ---
Author Author Kira Santiago, Anamaria Organization Unknown Address [address] [place], [place] [address] Phone Unavailable Care Team Providers Care Storekeeper Steward Name Role Phone Mulu Ferris M.D. Unavailable [...] Refills: 0 Anamaria Malone M.D.* Started 28-Aug-2014 [id number] Tablet Disp Pack Ondansetron 4 MG Oral [...] Name Dates Details Tdap (Adacel) Lot #: [id number] Administered on:23-Mar-2014 PPD Lot #: [id number] Administered on:17-Apr-2014 PPD Administered on:17-Apr-2014 Fluzone Quadrivalent 0.5 ML Intramuscular Suspension Lot #: [id number] Administered on:18-May-2014 Family History Unknown Family Member* [...] ml/min (Better) Range: >60 EST GFR, NON-AFR DJIBOUTIAN >60 ml/min (Better) Range: >60 Comments: EST GFR is reported in ml/min per 1.73 m2 of body surface area. For -Bermudian, please multiple result by 1.2.----- BUN:CREATININE RATIO [...] Planned Encounters* Appointment; Provider: Latoya Serna On 13-Sep-2014 09:00 Instructions * Instructions not documented Encounters Appointment; [...]
--- OUTSIDE RECORDS SUMMARY | 2016-12-29 07:14 | XMS REPORT | Summary of Care ---
Author Author Kira Santiago, Anamaria Organization Unknown Address [address] [place], [place] [phone] Phone Unavailable Care Team Providers Care Communications Tech Name Role Phone Josy Santiago, Mulu Unavailable [...] Refills: 0 Anamaria Malone M.D.* Started 28-Aug-2014 [id number] Tablet Disp Pack Ondansetron 4 MG Oral [...] Name Dates Details Tdap (Adacel) Lot #: [id number] Administered on:23-Mar-2014 PPD Lot #: [id number] Administered on:17-Apr-2014 PPD Administered on:17-Apr-2014 Fluzone Quadrivalent 0.5 ML Intramuscular Suspension Lot #: [id number] Administered on:18-May-2014 Family History Unknown Family Member* [...] m2 Status: Results Date Description Value Details 03-Oct-2014 12:15 OB Dept- Ultrasound Follow up Pelvic Sonogram Comments : Exam Date: 11:13Dictation Date: 12:15 XOB LIMITED PELVIC (Better) Plan of Care Planned Observations* Name Dates Details Planned Goals not documented Goal Planned Encounters* Appointment; Provider: Anamaria Malone On 19-Oct-2014 10:15 * Appointment; Provider: Latoya Serna On 17-Oct-2014 07:30 * Appointment; Provider: Anamaria Malone On 03-Oct-2014 13:00 Instructions * Instructions not documented Encounters Appointment; Anamaria Malone Encounter Diagnosis: Problem not documented On 03-Oct-2014 11:45 Appointment; Latoya Serna Encounter Diagnosis: Problem not documented On 02-Oct-2014 11:00 Appointment; Latoya Seran Encounter Diagnosis: Problem not documented On 13-Sep-2014 [...]
--- OUTSIDE RECORDS SUMMARY | 2016-12-29 07:14 | XMS REPORT ---
Author Author GENERATED, SYSTEM Organization Unknown Address Unknown Phone Unavailable Care Team Providers Care Tactical Air Defense Controller Name Role Phone MD SIS, VANESSA [phone] Reason For Visit Reason for Visit from 10/03/2014 1:11 PM:* Pt Stated Reason for Adm : hysterectomy Chief Complaint AUB,DAVINCI ASSISTED LA Social History Social History from 10/05/2014 8:51 AM:* Tobacco Use? : Former Smoker Social History from 10/03/2014 1:11 PM:* Tobacco Use? : Former Smoker Functional Status Functional Status from 10/05/2014 7:50 AM:* LOC : Alert * Oriented To : Person,Place,Time,Event * Weight Bearing Status : Full * Assist Level : Independent * # Assists : Independent Functional Status from 10/04/2014 11:30 PM:* LOC : Alert * Oriented To : Person,Place,Time,Event * Weight Bearing Status : Full * Assist Level : Independent * # Assists : Independent Functional Status from 10/04/2014 8:00 AM:* LOC : Alert * Oriented To : Person,Place,Time * Weight Bearing Status : Full * Assist Level : Partial * # Assists : 1 Functional Status from 10/03/2014 11:50 PM:* LOC : Alert * Oriented To : Person,Place,Time,Event * Weight Bearing Status : Full * Assist Level : Partial * # Assists : 1 Functional Status from 10/03/2014 6:10 PM:* LOC : Alert * Oriented To : Person,Place,Time,Event * Weight Bearing Status : Full * Assist Level : Partial * # Assists : 1 Functional Status from 10/03/2014 5:43 PM:* LOC : Alert * Oriented To : Person,Place,Event Functional Status from 10/03/2014 3:52 PM:* LOC : Drowsy Functional Status from 10/03/2014 1:11 PM:* LOC : Alert * Oriented To : Person,Place,Time,Event * Weight Bearing Status : Full * Assist Level : Independent * # Assists : Independent Vital Signs Hospital Vital Signs from 10/05/2014 7:34 AM:* Height : 5/0 ft,in * Temperature : 98.0 F * Pulse : 68 * Respirations : 18 * BP : 104/58 Hospital Vital Signs from 10/05/2014 3:10 AM:* Height : 5/0 ft,in * Temperature : 97.4 F * Pulse : 86 * Respirations : 18 * BP : 103/53 Hospital Vital Signs from 10/04/2014 11:30 PM:* Height : 5/0 ft,in * Temperature : 97.9 F * Pulse : 90 * Respirations : 18 * BP : 102/55 Hospital Vital Signs from 10/04/2014 7:45 PM:* Height : 5/0 ft,in * Temperature : 97.9 F * Pulse : 93 * Respirations : 20 * BP : 112/63 Hospital Vital Signs from 10/04/2014 11:18 AM:* Height : 5/0 ft,in * Temperature : 97.8 F * Pulse : 92 * Respirations : 20 * BP : 100/54 Hospital Vital Signs from 10/04/2014 9:41 AM:* Height : 5/0 ft,in Hospital Vital Signs from 10/04/2014 7:51 AM:* Height : 5/0 ft,in * Temperature : 97.9 F * Pulse : 106 * Respirations : 18 * BP : 112/79 Hospital Vital Signs from 10/04/2014 2:29 AM:* Height : 5/0 ft,in * Temperature : 97.9 F * Pulse : 70 * Respirations : 18 * BP : 97/55 Hospital Vital Signs from 10/03/2014 11:18 PM:* Height : 5/0 ft,in * Temperature : 97.9 F * Pulse : 81 * Respirations : 16 * BP : 108/71 Hospital Vital Signs from 10/03/2014 10:13 PM:* Height : 5/0 ft,in * Pulse : 93 * Respirations : 16 * BP : 118/72 Hospital Vital Signs from 10/03/2014 9:05 PM:* Height : 5/0 ft,in * Pulse : 98 * Respirations : 18 * BP : 123/73 Hospital Vital Signs from 10/03/2014 8:29 PM:* Height : 5/0 ft,in * Pulse : 88 * Respirations : 18 * BP : 117/76 Hospital Vital Signs from 10/03/2014 8:01 PM:* Height : 5/0 ft,in * Pulse : 75 * Respirations : 16 * BP : 105/58 Hospital Vital Signs from 10/03/2014 7:35 PM:* Height : 5/0 ft,in * Temperature : 98.4 F Hospital Vital Signs from 10/03/2014 7:15 PM:* Height : 5/0 ft,in * Pulse : 118 * Respirations : 18 * BP : 128/79 Hospital Vital Signs from 10/03/2014 7:00 PM:* Height : 5/0 ft,in * Pulse : 100 * Respirations : 18 * BP : 136/75 Hospital Vital Signs from 10/03/2014 6:45 PM:* Height : 5/0 ft,in * Pulse : 97 * Respirations : 18 * BP : 140/89 Hospital Vital Signs from 10/03/2014 6:30 PM:* Height : 5/0 ft,in * Pulse : 97 * Respirations : 18 * BP : 107/85 Hospital Vital Signs from 10/03/2014 6:15 PM:* Height : 5/0 ft,in * Pulse : 82 * Respirations : 18 * BP : 106/66 Hospital Vital Signs from 10/03/2014 6:05 PM:* Height : 5/0 ft,in * Temperature : 97.5 F * Pulse : 88 * Respirations : 16 * BP : 116/51 Hospital Vital Signs from 10/03/2014 5:40 PM:* Temp : 98.7 * Heart Rate : 101 * Resp Rate : 16 * Systolic BP (mmHg) : 116 * Diastolic BP (mmHg) : 77 * Mean BP (mmHg) : 83 * O2 Saturation (%) : 98 Hospital Vital Signs from 10/03/2014 5:30 PM:* Heart Rate : 103 * Resp Rate : 14 * Systolic BP (mmHg) : 122 * Diastolic BP (mmHg) : 70 * Mean BP (mmHg) : 85 * O2 Saturation (%) : 97 Hospital Vital Signs from 10/03/2014 5:20 PM:* Heart Rate : 110 * Resp Rate : 12 * Systolic BP (mmHg) : 108 * Diastolic BP (mmHg) : 56 * Mean BP (mmHg) : 72 * O2 Saturation (%) : 97 Hospital Vital Signs from 10/03/2014 5:10 PM:* Heart Rate : 100 * Resp Rate : 18 * Systolic BP (mmHg) : 112 * Diastolic BP (mmHg) : 68 * Mean BP (mmHg) : 78 * O2 Saturation (%) : 99 Hospital Vital Signs from 10/03/2014 5:00 PM:* Temp : 98.7 * Heart Rate : 106 * Resp Rate : 13 * Systolic BP (mmHg) : 115 * Diastolic BP (mmHg) : 65 * Mean BP (mmHg) : 87 * O2 Saturation (%) : 98 Hospital Vital Signs from 10/03/2014 4:55 PM:* Heart Rate : 96 * Resp Rate : 13 * Systolic BP (mmHg) : 114 * Diastolic BP (mmHg) : 68 * Mean BP (mmHg) : 85 * O2 Saturation (%) : 99 Hospital Vital Signs from 10/03/2014 4:50 PM:* Temp : 98.7 * Heart Rate : 93 * Resp Rate : 13 * Systolic BP (mmHg) : 111 * Diastolic BP (mmHg) : 62 * Mean BP (mmHg) : 73 * O2 Saturation (%) : 99 Hospital Vital Signs from 10/03/2014 4:45 PM:* Heart Rate : 99 * Resp Rate : 9 * Systolic BP (mmHg) : 109 * Diastolic BP (mmHg) : 57 * Mean BP (mmHg) : 73 * O2 Saturation (%) : 99 Hospital Vital Signs from 10/03/2014 4:40 PM:* Temp : 98.7 * Heart Rate : 98 * Resp Rate : 10 * Systolic BP (mmHg) : 116 * Diastolic BP (mmHg) : 77 * Mean BP (mmHg) : 83 * O2 Saturation (%) : 99 Hospital Vital Signs from 10/03/2014 4:35 PM:* Heart Rate : 88 * Resp Rate : 17 * Systolic BP (mmHg) : 117 * Diastolic BP (mmHg) : 63 * Mean BP (mmHg) : 80 * O2 Saturation (%) : 99 Hospital Vital Signs from 10/03/2014 4:30 PM:* Temp : 98 * Heart Rate : 101 * Resp Rate : 16 * Systolic BP (mmHg) : 118 * Diastolic BP (mmHg) : 66 * Mean BP (mmHg) : 97 * O2 Saturation (%) : 100 Hospital Vital Signs from 10/03/2014 4:25 PM:* Heart Rate : 79 * Resp Rate : 9 * Systolic BP (mmHg) : 112 * Diastolic BP (mmHg) : 54 * Mean BP (mmHg) : 69 * O2 Saturation (%) : 99 Hospital Vital Signs from 10/03/2014 4:20 PM:* Heart Rate : 98 * Resp Rate : 23 * Systolic BP (mmHg) : 109 * Diastolic BP (mmHg) : 64 * Mean BP (mmHg) : 80 * O2 Saturation (%) : 100 Hospital Vital Signs from 10/03/2014 4:15 PM:* Heart Rate : 98 * Resp Rate : 25 * Systolic BP (mmHg) : 118 * Diastolic BP (mmHg) : 79 * Mean BP (mmHg) : 92 * O2 Saturation (%) : 100 Hospital Vital Signs from 10/03/2014 4:10 PM:* Temp : 98 * Heart Rate : 102 * Resp Rate : 12 * Systolic BP (mmHg) : 108 * Diastolic BP (mmHg) : 66 * Mean BP (mmHg) : 72 * O2 Saturation (%) : 97 Hospital Vital Signs from 10/03/2014 4:05 PM:* Heart Rate : 102 * Resp Rate : 13 * Systolic BP (mmHg) : 133 * Diastolic BP (mmHg) : 70 * Mean BP (mmHg) : 80 * O2 Saturation (%) : 97 Hospital Vital Signs from 10/03/2014 4:00 PM:* Heart Rate : 102 * Resp Rate : 12 * Systolic BP (mmHg) : 129 * Diastolic BP (mmHg) : 73 * Mean BP (mmHg) : 91 * O2 Saturation (%) : 100 Hospital Vital Signs from 10/03/2014 3:55 PM:* Temp : 99.2 * Heart Rate : 108 * Resp Rate : 16 * Systolic BP (mmHg) : 114 * Diastolic BP (mmHg) : 70 * Mean BP (mmHg) : 81 * O2 Saturation (%) : 100 Hospital Vital Signs from 10/03/2014 1:14 PM:* Weight : 69.6/ kg * Height : 5/0 ft,in * Temperature : 99.8 F * Pulse : 128 * Respirations : 24 * BP : 121/93 Hospital Vital Signs from 10/03/2014 1:11 PM:* Weight : 69.6/ kg * Height : 5/ ft,in Results Hematology from 10/04/2014 12:05 PMWBC 13.3 X10e3/UL H (3.6-11.2 X10e3/UL) RBC 3.88 X10e6/UL (3.63-4.92 X10e6/UL) HEMOGLOBIN 11.0 G/DL (11.0-14.3 G/DL) HEMATOCRIT 33.9 % (31.2-41.9 %) MCV 87.3 FL (79.0-98.0 FL) MCH 28.4 PG (27.0-33.0 PG) MCHC 32.5 G/DL (32.0-36.0 G/DL) RDW 13.2 % (12.3-17.0 %) RDWSD 40.3 (37.1-47.8 ) PLATELET 250 X10e3/UL (159-386 X10e3/UL) MPV 9.7 FL (7.4-10.4 FL) Hematology from 10/04/2014 6:16 AMWBC 10.0 X10e3/UL (3.6-11.2 X10e3/UL) RBC 3.70 X10e6/UL (3.63-4.92 X10e6/UL) HEMOGLOBIN 10.6 G/DL L (11.0-14.3 G/DL) HEMATOCRIT 32.4 % (31.2-41.9 %) MCV 87.7 FL (79.0-98.0 FL) MCH 28.8 PG (27.0-33.0 PG) MCHC 32.8 G/DL (32.0-36.0 G/DL) RDW 13.8 % (12.3-17.0 %) RDWSD 42.4 (37.1-47.8 ) PLATELET 253 X10e3/UL (159-386 X10e3/UL) MPV 9.6 FL (7.4-10.4 FL) AUTOMATED DIFF PERFORMED SEGS 84.2 % LYMPHOCYTES 9.1 % MONOCYTES 6.6 % EOSINOPHILS 0.0 % BASOPHILS 0.1 % ABSOLUTE NEUTROPHILS 8.40 X10e3/UL H (1.80-7.80 X10e3/UL) ABSOLUTE LYMPHOCYTES 0.90 X10e3/UL L (1.00-3.00 X10e3/UL) ABSOLUTE MONOCYTES 0.70 X10e3/UL (0.30-1.00 X10e3/UL) ABSOLUTE EOSINOPHILS 0.00 X10e3/UL (0.00-0.50 X10e3/UL) ABSOLUTE BASOPHILS 0.00 X10e3/UL (0.00-0.20 X10e3/UL) Hematology from 10/03/2014 9:49 PMHEMOGLOBIN 11.5 G/DL (11.0-14.3 G/DL) HEMATOCRIT 35.2 % (31.2-41.9 %) Blood Bank from 10/03/2014 1:20 PMANTIBODY SCREEN (Indirect Stephanie) NEG ABO GROUP A RH TYPE NEG Problems Encounter Diagnosis No relevant problems exist. Encounters Encounter Diagnosis No relevant problems exist. Plan of Care Follow-up Appointments from 10/05/2014 8:51 AM:* #1 Office appointment: : Dr. 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 Procedures * Completed davinci laparoscopic assisted hysterectomy bilateral salpingectomy right oophorectomy, by MD SARAH MALONE, on 10/03/2014 1:37 PM * Completed , on 06/09/2009 12:00 AM Immunizations No immunizations administered or ordered. Hospital Course Hospital Discharge Instructions How to care for yourself at home from 10/05/2014 8:51 AM:* Discharge Activity : May Shower,Do not engage in sports, heavy work or heavy lifting until your physician gives permission * Discharge Diet : As before hospitalization * Call your doctor if: : Fever over 101 F or severe chills,You have persistent or worsening symptoms * Specific Discharge Teaching Instructions provided: : Yes * Discharge on Warfarin : No Allergies, Adverse Reactions, Alerts * Penicillins causes Anaphylaxis. * Latex causes Rash. * No IV Contrast Allergy. Medication It is the responsibility of the patient or patient printing sales representative to confirm the list of medications with either the patient's personal care provider or the patient's follow-up care provider to ensure the patient has an appropriate list of medications to take at home. Discharge medications New medications* HYDROmorphone (Dilaudid) 2 mg Tablet, Ordered By: SARAH MALONE MD Directions: 1-2 oral every four hours PRN PAIN * IBUPROFEN (MOTRIN) 800 MG=1 TABLET By Mouth Q8HP PRN PAIN, Clinician Dir:DO NOT GIVE IF PATIENT RECEIVING KETOROLAC. GIVE NEEDED FOR PAIN. Directions: oral every eight hours PRN PAIN Additional Instructions: DO NOT GIVE IF PATIENT RECEIVING KETOROLAC. GIVE NEEDED FOR PAIN. Changed medications* ALPRAZolam (XANax XR) 0.5 mg Tablet Extended Release 24 hr , Ordered By: SARAH MALONE MD Directions: 1 tablet oral daily PRN anxiety Stopped medications* methylPHENidate (Concerta) tablet extended release 24hr Directions: oral daily
--- OUTSIDE RECORDS SUMMARY | 2016-12-29 07:14 | XMS REPORT | Summary of Care ---
Author Author Kira Santiago, Anamaria Organization Unknown Address [address], [place] [id number] Phone Unavailable Care Team Providers Care Assembler Name Role Phone Mulu Ferris M.D. Unavailable [...] Name Dates Details Tdap (Adacel) Lot #: [id number] Administered on:23-Mar-2014 PPD Lot #: [id number] Administered on:17-Apr-2014 PPD Administered on:17-Apr-2014 Fluzone Quadrivalent 0.5 ML Intramuscular Suspension Lot #: [id number] Administered on:18-May-2014 Family History Unknown Family Member* [...] smoker Vital Signs Date Test Result Details 12:35 BP Systolic 112 mm[Hg] Status: BP Diastolic 64 mm[Hg] Status: Temperature 97.8 f Status: Weight 161.125 lb Status: Body Mass Index Calculated 30.44 kg/m2 Status: Body Surface Area Calculated 1.72 m2 Status: 10:47 BP Systolic 121 mm[Hg] Status: BP [...] Date: 12/29/2014 14:41 XOB EV SONO (Better) 10:25 CBC w/ Auto Diff 7150 WBC 5.7 K/uL (Better) Range: 4.5-11.0 RBC 4.46 mil/uL (Better) Range: 3.60-5.00 HGB 13.0 g/dL (Better) Range: 12.0-16.0 HCT 38.6 % (Better) Range: 36.0-48.0 MCV 86.4 fL (Better) Range: 80.0-99.0 MCH 29.2 pg (Better) Range: 27.3-32.5 MCHC 33.8 % (Better) Range: 32.0-36.0 RDW 14.5 % (Better) Range: 11.6-14.8 PLATELETS 250 K/uL (Better) Range: 150-400 MPV 8.9 fL (Better) Range: 6.0-11.0 %NEUTRO 57.7 % (Better) Range: 37.0-80.0 %LYMPHS 31.2 % (Better) Range: 13.0-50.0 %MONO 5.5 % (Better) Range: 0.0-12.0 %EOS 2.0 % (Better) Range: 0.0-7.0 %BASO 0.6 % (Better) Range: 0.0-2.5 %QUE 3.0 % (Better) Range: 0.0-5.0 NEUTRO 3.3 K/uL (Better) Range: 2.0-6.9 LYMPHS 1.8 K/uL (Better) Range: 0.6-3.4 MONOS 0.3 K/uL (Better) Range: 0.0-0.9 EOS 0.1 K/uL (Better) Range: 0.0-0.7 BASO 0.0 K/uL (Better) Range: 0.0-0.2 14:34 Urinalysis, Reflex to Microscopic or Culture PRN 8005 Comments: Surgery at ASC (cc) pH 6.0 (Better) Range: 5.0-7.5 SP GRAVITY 1.010 (Better) Range: 1.010-1.030 APPEARANCE CLEAR (Better) Range: Clear COLOR YELLOW (Better) Range: Straw-Yellow PROTEIN NEGATIVE mg/dL (Better) Range: Negative-Trace GLUCOSE NEGATIVE mg/dL (Better) Range: Negative KETONE NEGATIVE mg/dL (Better) Range: Negative BILIRUB NEGATIVE (Better) Range: Negative BLOOD NEGATIVE (Better) Range: Negative UROBIL 0.2 EU/dL (Better) Range: 0.2-1.0 NITRITE NEGATIVE (Better) Range: Negative LEUK NEGATIVE (Better) Range: Negative 16:11 OB Dept- Ultrasound Follow up Pelvic Sonogram Comments: Exam Date : 01/11/2015 13:39Dictation Date: 01/11/2015 16:11 XOB LIMITED PELVIC (Better) 17:07 Vaginitis Panel ( Trichomonas, Gardnerella, Jackie sp.) 5615 T. VAGINALIS PROBE Negative (Better) Range: Negative GARDNERELLA PROBE Negative (Better) Range: Negative JACKIE SP. PROBE Negative (Better) Range: Negative 07:50 URINE CULTURE 5010 *URINE CULTURE Microbiology results (Better) Comments: URINE SOURCE: Clean CatchCOLONY COUNT>100,000 cfu/ml. of 3 or more colony types of gram positive bacteria. (SUGGESTIVE OF CONTAMINATION)----- Plan of Care Planned Observations* Name Dates Details Planned Goals not documented Goal Planned Encounters* Appointment; Provider: Ronny Salvador On 24-Apr-2015 10:00 * Appointment; Provider: Schedule Radiology On 18-Apr-2015 16:00 * Appointment; Provider: Schedule Radiology On 29-Dec-2014 [...]
--- OUTSIDE RECORDS SUMMARY | 2016-12-29 07:14 | XMS REPORT | Summary of Care ---
Author Author Kira Santiago, [employer] [facility] Unknown Address [address] [place], [place] [id number] Phone Unavailable Care Team Providers Care Admitting Representative Name Role Phone Josy Santiago, Mulu Unavailable [...] Active Ovarian cyst (620.2, N83.20) Status: Active Medications Name Dates Details Xanax [...] Ordered:28-Aug-2014 OB Dept- Ultrasound Pelvic Sonogram Ordered:03-Oct-2014 OB Dept- Ultrasound Follow up Pelvic Sonogram Ordered:16-Oct-2014 MAMMOGRAM-DIAG UNILATERAL FOR LUMP PAIN Ordered:23-Aug-2014 Immunization Name Dates Details Tdap (Adacel) Lot #: [id number] Administered on:23-Mar-2014 PPD Lot #: [id number] Administered on:17-Apr-2014 PPD Administered on:17-Apr-2014 Fluzone Quadrivalent 0.5 ML Intramuscular Suspension Lot #: [id number] Administered on:18-May-2014 Family History Unknown Family Member* [...] Body Surface Area Calculated 1.7 m2 Status: 02-Oct-2014 11:05 BP Systolic 118 mm[Hg] Status: BP Diastolic 78 mm[Hg] Status: Weight 162 lb Status: Body Mass Index Calculated 30.61 kg/m2 Status: Body Surface Area Calculated 1.73 m2 Status: Results Date Description Value Details 03-Oct-2014 12:15 OB Dept- Ultrasound Follow up Pelvic Sonogram Comments : Exam Date: 11:13Dictation Date: 12:15 XOB LIMITED PELVIC (Better) 11-Oct-2014 11:11 Urinalysis, Reflex to Microscopic or [...] Planned Encounters* Appointment; Provider: Anamaria Malone On 20-Nov-2014 13:15 * Appointment; Provider: Hudson Smith On 08-Nov-2014 12:00 * Appointment; Provider: Anamaria Malone On 03-Oct-2014 [...]
--- OUTSIDE RECORDS SUMMARY | 2016-12-29 07:15 | XMS REPORT | CCD ---
Author Author JERMAINE DOMINGUEZ Organization Unknown Address [address], [place] [phone] Phone 0 Care Team Providers Care Him Specialists Name Role Phone FELICIANO SALDANA Attending Physician 0 FELICIANO SALDANA Primary Surgeon 0 FNATHANIEL Du Nurse Assisstant 0 Vital Signs Unknown or Not Available. Allergies Allergy Code Allergy Type Reaction Status PENICILLIN 336100 Drug allergy Active DEMEROL 752186 Drug allergy Active ZITHROMAX 053897 Drug allergy Active Procedures Unknown or Not Available. History of Immunizations Unknown or Not Available. Problems Unknown or Not Available. Results BASIC METABOLIC - Collect Date/Time: 05/27/2016 17:25 Test Name Code Test Result Test Units Test Ref Range GLUCOSE 138 mg/dL L=70 H=110 BUN 13 mg/dL L=7 H=18 CREATININE 0.90 mg/ dL L=0.60 H=1.30 AGE 41 YEARS GFR 69.7 SODIUM 138 mmol/L L=136 H=145 POTASSIUM 3.5 mmol/ L L=3.5 H=5.1 CHLORIDE 100 mmol/L L=98 H=107 CO2 23 mmol/L L=21 H=32 CALCIUM 8.9 mg/dL L=8.5 H=10.1 CBC W/ DIFF - Collect Date/Time: 05/27/2016 17:25 Test Name Code Test Result Test Units Test Ref Range WBC 13.0 x10^3 L=4.8 H=10.8 RBC 5.25 x10^6 L=4.20 H=5.40 HEMOGLOBIN 15.7 g/ dL L=12.0 H=16.0 HEMATOCRIT 45.3 % L=37.0 H=47.0 MCV 86 fL L=80 H=100 MCH 29.9 pg L=27.0 H=33.0 MCHC 34.6 g/dL L=33.0 H=37.0 RDW 13.0 % L=11.5 H=14.5 PLATELETS 279 x10^3 L=150 H=450 MPV 9.5 fL L=7.8 H=11.0 NEUTROPHILS 78.1 % L=40.0 H=80.0 LYMPHOCYTES 18.4 % L=20.0 H=45.0 MONOCYTES 3.4 % L=0.0 H=10.0 EOSINOPHILS 0.1 % L=0.0 H=5.0 BASOPHILS 0.0 % L=0.0 H=2.0 SEG 77 %% L=40 H=80 BAND 1 %% L=0 H=5 LYMPH 20 %% L=20 H=45 MONO 2 %% L=0 H=10 EOS 0 %% L=0 H=5 BASO 0 %% L=0 H=2 ATYP LYMPH 0 %% L=0 H=10 META 0 %% L=0 H=1 REFLEX MAN DIFF YES N/A RBC MORPHOLOGY NORMAL N/A UA AUTO W/ MICRO - Collect Date/Time: 05/27/2016 18:18 Test Name Code Test Result Test Units Test Ref Range COLOR Yellow N/A NORMAL: Yellow APPEARANCE Clear N/ A NORMAL: Clear GLUCOSE Negative N/ A NORMAL: Negative BILIRUBIN Negative N /A NORMAL: Negative KETONE 15 N/A NORMAL: Negative SPEC GRAVITY 1.015 N /A NORMAL: 1.005-1.030 BLOOD Negative N/A NORMAL: Negative PROTEIN Negative N/ A NORMAL: Negative PH 8.5 N/A NORMAL: 5.0-8.0 UROBILINOGEN 0.2 N/ A NORMAL: Negative NITRITE Negative N/ A NORMAL: Negative LEUKOCYTES Negative N/A NORMAL: Negative MICRO RBC None Seen N/A NORMAL: 0-2 MICRO WBC 0-2 N/A NORMAL: 0-2 BACTERIA Trace N/A NORMAL: None-Trace EPI CELLS 5-10 N/A NORMAL: 0-15 MUCUS Trace N/A NORMAL: None-Small AMORPHOUS None Seen N/A NORMAL: None Seen YEAST None Seen N/A NORMAL: None Seen CRYSTALS None Seen N /A NORMAL: None Seen CAST None Seen N/A NORMAL: None Seen URINE CULTURE? NO N/ A Active Medications Unknown or Not Available. Medications Administered During Visit Unknown or Not Available. Encounters Encounter Diagnosis Diagnosis Code Start Date Dehydration E860 05/27/2016 Social History Smoking Status Code Start Date End Date Unknown if ever smoked [id number] Patient Decision Aids Unknown or Not Available. Discharge Instructions You were admitted to [facility] on 05/27/2016 17:09 with a principal diagnosis of Dehydration You had the following tests done: BASIC METABOLIC CBC W/ DIFF UA AUTO W / MICRO You were discharged from [facility] on 05/27/2016 19:05 Should you have any questions prior to discharge, please contact a member of your healthcare team. If you have left the hospital and have any questions, please contact your primary care physician. Chief Complaint and Reason For Visit Chief Complaint Date of Onset DIARRHEA, DEHYDRATION Function Status Unknown or Not Available. Plan of Care Unknown or Not Available. Referral/Transition of Care Unknown or Not Available.
--- OUTSIDE RECORDS SUMMARY | 2016-12-29 07:15 | XMS REPORT | Summary of Care ---
Author Author Kira Santiago, Anamaria Organization Unknown Address [address], [place] [phone] Phone Unavailable Care Team Providers Care Multicut Line Operator Name Role Phone Josy Santiago, Mulu Unavailable [...] Name Dates Details Tdap (Adacel) Lot #: [id number] Administered on:23-Mar-2014 PPD Lot #: [id number] Administered on:17-Apr-2014 PPD Administered on:17-Apr-2014 Fluzone Quadrivalent 0.5 ML Intramuscular Suspension Lot #: [id number] Administered on:18-May-2014 Family History Unknown Family Member* [...]
--- OUTSIDE RECORDS SUMMARY | 2016-12-29 07:15 | XMS REPORT | Summary of Care ---
Author Author Shefali Aranda M.D. Unknown Address [address], [place] [phone] Phone Unavailable Care Team Providers Care Recruitment Coordinator Name Role Phone Mulu Ferris M.D. Unavailable [...] Name Dates Details Tdap (Adacel) Lot #: [id number] Administered on:23-Mar-2014 PPD Lot #: [id number] Administered on:17-Apr-2014 PPD Administered on:17-Apr-2014 Fluzone Quadrivalent 0.5 ML Intramuscular Suspension Lot #: [id number] Administered on:18-May-2014 Family History Unknown Family Member* [...] Diagnosis: Problem not documented On 13:15 Appointment; Sahmar De Dios Encounter Diagnosis: Problem not documented On 24-Dec-2013 12:30
--- OUTSIDE RECORDS SUMMARY | 2016-12-29 07:15 | XMS REPORT | Summary of Care ---
Author Author Kira Santiago, Anamaria Organization Unknown Address [address], [place] [phone] Phone Unavailable Care Team Providers Care Credit And Collections Representative Name Role Phone Mulu Ferris M.D. Unavailable [...] Ovarian History of Appendectomy History of Hysterectomy CBC w/ Auto Diff 7150 Ordered: OB Dept- Ultrasound Pelvic Sonogram Ordered:29-Dec-2014 Immunization Name Dates Details Tdap (Adacel) Lot #: [id number] Administered on:23-Mar-2014 PPD Lot #: [id number] Administered on:17-Apr-2014 PPD Administered on:17-Apr-2014 Fluzone Quadrivalent 0.5 ML Intramuscular Suspension Lot #: [id number] Administered on:18-May-2014 Family History Unknown Family Member* [...] Ronny Salvador On 10:45 * Appointment; Provider: Schedule Radiology On 29-Dec-2014 [...]
--- OUTSIDE RECORDS SUMMARY | 2016-12-29 07:15 | XMS REPORT | Summary of Care ---
Author Author Kira Santiago, Anamaria Organization Unknown Address [address] [place], [place] [phone] Phone Unavailable Care Team Providers Care Top Lift Compresser Name Role Phone Mulu Ferris M.D. Unavailable [...] Refills: 0 Anamaria Malone M.D.* Started 28-Aug-2014 [id number] Tablet Disp Pack Ondansetron 4 MG Oral [...] Name Dates Details Tdap (Adacel) Lot #: [id number] Administered on:23-Mar-2014 PPD Lot #: [id number] Administered on:17-Apr-2014 PPD Administered on:17-Apr-2014 Fluzone Quadrivalent 0.5 ML Intramuscular Suspension Lot #: [id number] Administered on:18-May-2014 Family History Unknown Family Member* [...]
--- OUTSIDE RECORDS SUMMARY | 2016-12-29 07:16 | XMS REPORT | Summary of Care ---
Author Author Kira Santiago, Anamaria Organization Unknown Address [address], [place] [phone] Phone Unavailable Care Team Providers Care Materials Scientist Name Role Phone Josy Santiago, Mulu Unavailable Unavailable Anamaria Malone M.D. Unavailable Unavailable Adonay Ferirs PP Unavailable Unavailable Unavailable Functional Status Functional [...] Name Dates Details Tdap (Adacel) Lot #: [id number] Administered on:23-Mar-2014 PPD Lot #: [id number] Administered on:17-Apr-2014 PPD Administered on:17-Apr-2014 Fluzone Quadrivalent 0.5 ML Intramuscular Suspension Lot #: [id number] Administered on:18-May-2014 Family History Unknown Family Member* [...] JACKIE SP. PROBE Negative (Better) Range: Negative Plan of Care Planned Observations* Name Dates [...]
--- OUTSIDE RECORDS SUMMARY | 2016-12-29 07:16 | XMS REPORT | Summary of Care ---
Author Author Kira Santiago, [facility] Unknown Address [address] [place], [place] [address] Phone Unavailable Care Team Providers Care Door Installer Name Role Phone Josy Santiago, Mulu Unavailable [...] Name Dates Details Tdap (Adacel) Lot #: [id number] Administered on:23-Mar-2014 PPD Lot #: [id number] Administered on:17-Apr-2014 PPD Administered on:17-Apr-2014 Fluzone Quadrivalent 0.5 ML Intramuscular Suspension Lot #: [id number] Administered on:18-May-2014 Family History Unknown Family Member* [...] Planned Encounters* Appointment; Provider: Hudson Smith On 08-Nov-2014 12:00 [...]
--- OUTSIDE RECORDS SUMMARY | 2016-12-29 07:16 | XMS REPORT | Summary of Care ---
Author Author Adonay Ferris M.D. Organization Unknown Address [address] [place], [place] [phone] Phone Unavailable Care Team Providers Care Packer And Carry Out Name Role Phone Mulu Ferris M.D. Unavailable [...] Refills: 0 Anamaria Malone M.D.* Started 28-Aug-2014 [id number] Tablet Disp Pack Ondansetron 4 MG Oral [...] Name Dates Details Tdap (Adacel) Lot #: [id number] Administered on:23-Mar-2014 PPD Lot #: [id number] Administered on:17-Apr-2014 PPD Administered on:17-Apr-2014 Fluzone Quadrivalent 0.5 ML Intramuscular Suspension Lot #: [id number] Administered on:18-May-2014 Family History Unknown Family Member* [...] ml/min (Better) Range: >60 EST GFR, NON-AFR MALDIVIAN >60 ml/min (Better) Range: >60 Comments: EST GFR is reported in ml/min per 1.73 m2 of body surface area. For -Tajik, please multiple result by 1.2.----- BUN:CREATININE RATIO [...]
--- OUTSIDE RECORDS SUMMARY | 2016-12-29 07:16 | XMS REPORT | Summary of Care ---
Author Author Kira Santiago, Anamaria Organization Unknown Address [address] [place], [place] [address] Phone Unavailable Care Team Providers Care Director Of Health Education Name Role Phone Mulu Ferris M.D. Unavailable [...] Refills: 0 Anamaria Malone M.D.* Started 28-Aug-2014 [id number] Tablet Disp Pack Ondansetron 4 MG Oral [...] Name Dates Details Tdap (Adacel) Lot #: [id number] Administered on:23-Mar-2014 PPD Lot #: [id number] Administered on:17-Apr-2014 PPD Administered on:17-Apr-2014 Fluzone Quadrivalent 0.5 ML Intramuscular Suspension Lot #: [id number] Administered on:18-May-2014 Family History Unknown Family Member* [...] ml/min (Better) Range: >60 EST GFR, NON-AFR UKRAINIAN >60 ml/min (Better) Range: >60 Comments: EST GFR is reported in ml/min per 1.73 m2 of body surface area. For -Tunisian, please multiple result by 1.2.----- BUN:CREATININE RATIO [...] Appointment; Provider: Latoya Serna On 13-Sep-2014 09:00 * Appointment; Provider: Anamaria Malone On 13-Sep-2014 08:45 Instructions * Instructions not documented Encounters Appointment; [...]
--- OUTSIDE RECORDS SUMMARY | 2016-12-29 07:16 | XMS REPORT | CCD ---
Author Author JERMAINE DOMINGUEZ Organization Unknown Address [address], [place] [address] Phone 0 Care Team Providers Care Handle Maker Name Role Phone FELICIANO SALDANA Attending Physician 0 Vital Signs Unknown or Not Available. Allergies Allergy Code Allergy Type Reaction Status PENICILLIN 425561 Drug allergy Active DEMEROL 314826 Drug allergy Active ZITHROMAX 885068 Drug allergy Active Procedures Unknown or Not Available. History of Immunizations Unknown or Not Available. Problems Unknown or Not Available. Results Unknown or Not Available. Active Medications Unknown or Not Available. Medications Administered During Visit Unknown or Not Available. Encounters Encounter Diagnosis Diagnosis Code Start Date Cervicalgia M542 05/12/2016 Social History Smoking Status Code Start Date End Date Unknown if ever smoked [id number] Patient Decision Aids Unknown or Not Available. Discharge Instructions You were admitted to [facility] on 05/12/2016 16:38 with a principal diagnosis of Cervicalgia You were discharged from [facility] on 05/12/2016 16:38 Should you have any questions prior to discharge, please contact a member of your healthcare team. If you have left the hospital and have any questions, please contact your primary care physician. Chief Complaint and Reason For Visit Chief Complaint Date of Onset XRAY Function Status Unknown or Not Available. Plan of Care Unknown or Not Available. Referral/Transition of Care Unknown or Not Available.
--- OUTSIDE RECORDS SUMMARY | 2016-12-29 07:16 | XMS REPORT | Summary of Care ---
Author Author Kira Santiago, Anamaria Organization Unknown Address [address] [place], [place] [address] Phone Unavailable Care Team Providers Care Cylinder Dyer Name Role Phone Josy Santiago, Mulu Unavailable [...] Name Dates Details Tdap (Adacel) Lot #: [id number] Administered on:23-Mar-2014 PPD Lot #: [id number] Administered on:17-Apr-2014 PPD Administered on:17-Apr-2014 Fluzone Quadrivalent 0.5 ML Intramuscular Suspension Lot #: [id number] Administered on:18-May-2014 Family History Unknown Family Member* [...] 0.0-0.7 BASO 0.0 K/uL (Better) Range: 0.0-0.2 Plan of Care Planned Observations* Name Dates [...]
--- OUTSIDE RECORDS SUMMARY | 2016-12-29 07:16 | XMS REPORT | Summary of Care ---
Author Author Kira Santiago, Anamaria [facility] Unknown Address [address] [place], [place] [address] Phone Unavailable Care Team Providers Care Senior Tax Analyst Name Role Phone Mulu Ferris M.D. [...] Ovarian History of Appendectomy History of Hysterectomy Urinalysis, Reflex to Microscopic or Culture PRN 8005 Ordered:11-Apr-2015 URINE CULTURE [id number] Ordered:11-Apr-2015 Vaginitis Panel ( Trichomonas, Gardnerella, Jackie sp.) 5615 Ordered:2014 Immunization Name Dates Details Tdap (Adacel) Lot #: [id number] Administered on:23-Mar-2014 PPD Lot #: [id number] Administered on:17-Apr-2014 PPD Administered on:17-Apr-2014 Fluzone Quadrivalent 0.5 ML Intramuscular Suspension Lot #: [id number] Administered on:18-May-2014 Family History Unknown Family Member* [...] smoker Vital Signs Date Test Result Details 11-Apr-2015 12:17 BP Systolic 125 mm[Hg] Status: BP Diastolic 75 mm[Hg] Status: Weight 157 lb Status: Body Mass Index Calculated 29.67 kg/m2 Status: Body Surface Area Calculated 1.7 m2 Status: 05-Apr-2015 15:12 BP Systolic 118 mm[Hg] Status: [...] 16:00 * Appointment; Provider: Schedule Radiology On 05-Apr-2015 16:30 * Appointment; Provider: Schedule Radiology On 29-Dec-2014 13:00 * Appointment; Provider: Anamaria Malone On 03-Oct-2014 13:00 Instructions * Instructions not documented Encounters Appointment; Anamaria Malone Encounter Diagnosis: Problem not documented On 11-Apr-2015 11:45 Appointment; Shefali Aranda Encounter Diagnosis: Problem not [...]
--- OUTSIDE RECORDS SUMMARY | 2016-12-29 07:16 | XMS REPORT | Summary of Care ---
Author Author Kira Santiago, Anamaria Organization Unknown Address [address] [place], [place] [address] Phone Unavailable Care Team Providers Care Patrol Deputy Sheriff Name Role Phone Mulu Ferris M.D. Unavailable [...] Chronic otitis media (382.9, H66.90) Status: Active Hypertrophy of nasal turbinates (478.0, J34.3) Status: Active Eustachian tube dysfunction (381.81, H69.80) Status: Active Cervical neuritis (723.4, M54.12) Status: Active Cervicalgia (723.1, M54.2) Status: Active Lump of breast, left (611.72, N63) Status: Active Urinary, incontinence, stress female (625.6, N39.3) Status: Active Pelvic pain in female (625.9, R10.2) Status: Active Menorrhagia (626.2, N92.0) Status: Active Abnormal uterine bleeding (626.9, N93.9) Status: Active Urinary symptom or sign (788.99, R39.89) Status: Active Medications Name Dates Details Xanax [...] Refills: 0 Anamaria Malone M.D.* Started 28-Aug-2014 [id number] Tablet Disp Pack Ondansetron 4 MG Oral [...] Ordered:28-Aug-2014 MAMMOGRAM-DIAG UNILATERAL FOR LUMP PAIN Ordered:23-Aug-2014 OB Dept- Ultrasound Pelvic Sonogram Ordered:03-Oct-2014 Immunization Name Dates Details Tdap (Adacel) Lot #: [id number] Administered on:23-Mar-2014 PPD Lot #: [id number] Administered on:17-Apr-2014 PPD Administered on:17-Apr-2014 Fluzone Quadrivalent 0.5 ML Intramuscular Suspension Lot #: [id number] Administered on:18-May-2014 Family History Unknown Family Member* [...] Malone On 19-Oct-2014 10:15 * Appointment; Provider: Anamaria Malone On 03-Oct-2014 [...]
--- OUTSIDE RECORDS SUMMARY | 2016-12-29 07:16 | XMS REPORT | Summary of Care ---
Author Author Kira Santiago, Anamaria [facility] Unknown Address [address] [place], [place] [phone] Phone Unavailable Care Team Providers Care Medical Terminologist Name Role Phone Mulu Ferris M.D. Unavailable [...] or Culture PRN 8005 Ordered:11-Apr-2015 URINE CULTURE [id number] Ordered:11-Apr-2015 Vaginitis Panel ( Trichomonas, Gardnerella, Jackie sp.) 5615 Ordered:2014 Immunization Name Dates Details Tdap (Adacel) Lot #: [id number] Administered on:23-Mar-2014 PPD Lot #: [id number] Administered on:17-Apr-2014 PPD Administered on:17-Apr-2014 Fluzone Quadrivalent 0.5 ML Intramuscular Suspension Lot #: [id number] Administered on:18-May-2014 Family History Unknown Family Member* [...]
--- OUTSIDE RECORDS SUMMARY | 2016-12-29 07:17 | XMS REPORT | Summary of Care ---
Author Author Kira Santiago, [employer] [facility] Unknown Address [address] [place], [place] [phone] Phone Unavailable Care Team Providers Care Logging Operations Inspector Name Role Phone Josy Santiago, Mulu Unavailable [...] of Hysterectomy OB Dept- Ultrasound Pelvic Sonogram Ordered:03-Oct-2014 OB Dept- Ultrasound Follow up Pelvic Sonogram Ordered:16-Oct-2014 Immunization Name Dates Details Tdap (Adacel) Lot #: [id number] Administered on:23-Mar-2014 PPD Lot #: [id number] Administered on:17-Apr-2014 PPD Administered on:17-Apr-2014 Fluzone Quadrivalent 0.5 ML Intramuscular Suspension Lot #: [id number] Administered on:18-May-2014 Family History Unknown Family Member* [...] smoker Vital Signs Date Test Result Details 20-Nov-2014 13:21 BP Systolic 115 mm[Hg] Status: BP Diastolic 62 mm[Hg] Status: Weight 157.8 lb Status: Body Mass Index Calculated 29.82 kg/m2 Status: Body Surface Area Calculated 1.71 m2 Status: Results Date Description Value Details 08-Nov-2014 15:08 CYTOLOGY - URINE 4444 CYTOLOGY Specimen referred to [facility]. Report to follow. (Better) 10-Nov-2014 08:07 URINE CULTURE 5010 *URINE CULTURE Microbiology results (Better) Comments: URINE SOURCE: Clean CatchCOLONY COUNTNo Growth----- Plan of Care Planned Observations* Name Dates Details Planned Goals not documented Goal Planned Encounters* Appointment; Provider: Anamaria Malone On 03-Oct-2014 13:00 [...]
--- OUTSIDE RECORDS SUMMARY | 2016-12-29 07:17 | XMS REPORT | Summary of Care ---
Author Author Shefali Aranda M.D. Unknown Address [address] [place], [place] [address] Phone Unavailable Care Team Providers Care Box Inspector Name Role Phone Mulu Ferris M.D. Unavailable Unavailable Kira Santiago, Anamaria Unavailable Unavailable [...] Name Dates Details Tdap (Adacel) Lot #: [id number] Administered on:23-Mar-2014 PPD Lot #: [id number] Administered on:17-Apr-2014 PPD Administered on:17-Apr-2014 Fluzone Quadrivalent 0.5 ML Intramuscular Suspension Lot #: [id number] Administered on:18-May-2014 Family History Unknown Family Member* [...] documented Goal Planned Encounters* Appointment; Provider: Ronny aSlvador On 24-Apr-2015 10:00 * Appointment; Provider: Schedule [...]
--- OUTSIDE RECORDS SUMMARY | 2016-12-29 07:17 | XMS REPORT | Summary of Care ---
Author Author Daphne Santiago, Latoya Pereyra Unknown Address [address] [place], [place] [address] Phone Unavailable Care Team Providers Care Retail Account Specialist Name Role Phone Josy Santiago, Mulu Unavailable [...] Abnormal uterine bleeding (626.9, N93.9) Status: Active Pelvic pain in female (625.9, R10.2) Status: Active Menorrhagia (626.2, N92.0) Status: Active Urinary, incontinence, stress female (625.6, N39.3) Status: Active Medications Name Dates Details Xanax [...] Refills: 0 Anamaria Malone M.D.* Started 28-Aug-2014 [id number] Tablet Disp Pack Ondansetron 4 MG Oral [...] Name Dates Details Tdap (Adacel) Lot #: [id number] Administered on:23-Mar-2014 PPD Lot #: [id number] Administered on:17-Apr-2014 PPD Administered on:17-Apr-2014 Fluzone Quadrivalent 0.5 ML Intramuscular Suspension Lot #: [id number] Administered on:18-May-2014 Family History Unknown Family Member* [...] Planned Encounters* Appointment; Provider: Anamaria Malone On 17-Oct-2014 07:30 Instructions * Instructions not documented Encounters Appointment; [...]
--- OUTSIDE RECORDS SUMMARY | 2016-12-29 07:17 | XMS REPORT | Summary of Care ---
Author Author Kira Santiago, Anamaria Organization Unknown Address [address] [place], [place] [phone] Phone Unavailable Care Team Providers Care Auto Transport Driver Name Role Phone Mulu Ferris M.D. Unavailable [...] Refills: 0 Anamaria Malone M.D.* Started 28-Aug-2014 [id number] Tablet Disp Pack Ondansetron 4 MG Oral [...] Name Dates Details Tdap (Adacel) Lot #: [id number] Administered on:23-Mar-2014 PPD Lot #: [id number] Administered on:17-Apr-2014 PPD Administered on:17-Apr-2014 Fluzone Quadrivalent 0.5 ML Intramuscular Suspension Lot #: [id number] Administered on:18-May-2014 Family History Unknown Family Member* [...] ml/min (Better) Range: >60 EST GFR, NON-AFR BRUNEIAN >60 ml/min (Better) Range: >60 Comments: EST GFR is reported in ml/min per 1.73 m2 of body surface area. For -Icelandic, please multiple result by 1.2.----- BUN:CREATININE RATIO [...]
--- OUTSIDE RECORDS SUMMARY | 2016-12-29 07:17 | XMS REPORT | Summary of Care ---
Author Author Kira Santiago, Anamaria [facility] Unknown Address [address] [place], [place] [phone] Phone Unavailable Care Team Providers Care County Director Name Role Phone Mulu Ferris M.D. Unavailable [...] of Appendectomy History of Hysterectomy URINE CULTURE [id number] Ordered:11-Apr-2015 Immunization Name Dates Details Tdap (Adacel) Lot #: [id number] Administered on:23-Mar-2014 PPD Lot #: [id number] Administered on:17-Apr-2014 PPD Administered on:17-Apr-2014 Fluzone Quadrivalent 0.5 ML Intramuscular Suspension Lot #: [id number] Administered on:18-May-2014 Family History Unknown Family Member* [...] 16:53 XC AB/PEL 45 MIN PREP (Better) 11-Apr-2015 13:24 Urinalysis, Reflex to Microscopic or Culture PRN 8005 pH 6.0 (Better) Range: 5.0-7.5 SP GRAVITY 1.020 (Better) Range: 1.010-1.030 APPEARANCE CLEAR (Better) Range: Clear COLOR YELLOW (Better) Range: Straw-Yellow PROTEIN NEGATIVE mg/dL (Better) Range: Negative-Trace GLUCOSE NEGATIVE mg/dL (Better) Range: Negative KETONE NEGATIVE mg/dL (Better) Range: Negative BILIRUB NEGATIVE (Better) Range: Negative BLOOD NEGATIVE (Better) Range: Negative UROBIL 0.2 EU/dL (Better) Range: 0.2-1.0 NITRITE NEGATIVE (Better) Range: Negative LEUK TRACE (Abnormal) Range: Negative 13:24 Urine Microscopic UMIC WBC 0-2 /HPF (Better) Range: 0-5 RBC 0-2 /HPF (Better) Range: 0-2 MUCUS 2+ /LPF (Better) Range: Negative-2+ EPITH 0-2 /HPF (Better) Range: 0-10 15:19 Vaginitis Panel ( Trichomonas, Gardnerella, Jackie sp.) [...]
--- OUTSIDE RECORDS SUMMARY | 2016-12-29 07:18 | XMS REPORT | Summary of Care ---
Author Author Kira Santiago, Anamaria Organization Unknown Address [address] [place], [place] [phone] Phone Unavailable Care Team Providers Care Associate Relations Specialist Name Role Phone Josy Santiago, Mulu [...] Ovarian History of Appendectomy History of Hysterectomy Vaginitis Panel ( Trichomonas, Gardnerella, Jackie sp.) 5615 Ordered:2014 OB Dept- Ultrasound Pelvic Sonogram Ordered:29-Dec-2014 ULTRASOUND BREAST LEFT Ordered: OB Dept- Ultrasound Follow up Pelvic Sonogram Ordered: Immunization Name Dates Details Tdap (Adacel) Lot #: [id number] Administered on:23-Mar-2014 PPD Lot #: [id number] Administered on:17-Apr-2014 PPD Administered on:17-Apr-2014 Fluzone Quadrivalent 0.5 ML Intramuscular Suspension Lot #: [id number] Administered on:18-May-2014 Family History Unknown Family Member* [...] or Culture PRN 8005 Comments: Surgery at [facility] (cc) pH 6.0 (Better) Range: 5.0-7.5 SP [...] Range: Negative LEUK NEGATIVE (Better) Range: Negative Plan of Care Planned [...]
--- OUTSIDE RECORDS SUMMARY | 2016-12-29 07:18 | XMS REPORT | Summary of Care ---
Author Author Kira Santiago, Anamaria Organization Unknown Address [address] [place], [place] [address] Phone Unavailable Care Team Providers Care Heel Buffer Name Role Phone Mulu Ferris M.D. Unavailable [...] Refills: 0 Anamaria Malone M.D.* Started 28-Aug-2014 [id number] Tablet Disp Pack Ondansetron 4 MG Oral [...] PRN 8005 Ordered:28-Aug-2014 URINE CULTURE 5010 Ordered:28-Aug-2014 Urinalysis, Reflex to Microscopic or Culture PRN 8005 Ordered:09-Oct-2014 URINE CULTURE 5010 Ordered:09-Oct-2014 MAMMOGRAM-DIAG UNILATERAL FOR LUMP PAIN Ordered:23-Aug-2014 OB Dept- Ultrasound Pelvic Sonogram Ordered:03-Oct-2014 Immunization Name Dates Details Tdap (Adacel) Lot #: [id number] Administered on:23-Mar-2014 PPD Lot #: [id number] Administered on:17-Apr-2014 PPD Administered on:17-Apr-2014 Fluzone Quadrivalent 0.5 ML Intramuscular Suspension Lot #: [id number] Administered on:18-May-2014 Family History Unknown Family Member* [...]
--- OUTSIDE RECORDS SUMMARY | 2016-12-29 07:18 | XMS REPORT ---
Author Author GENERATED, SYSTEM Organization Unknown Address Unknown Phone Unavailable Care Team Providers Care Sales Project Coordinator Name Role Phone MD SIS, VANESSA [phone] Reason For Visit Chief Complaint LOWER ABDOMINAL PAIN Social History Functional Status Vital Signs Results Chemistry from 10/03/2014 6:38 AMSODIUM 134 MMOL/L L (136-145 MMOL/L) POTASSIUM 3.9 MMOL/L (3.5-5.1 MMOL/L) CHLORIDE 101 MMOL/L (98-107 MMOL/L) TCO2 22.7 MMOL/L (21.0-32.0 MMOL/L) ANION GAP 10.3 MMOL/L (8.0-16.0 MMOL/L) BUN 11 MG/DL (7-18 MG/DL) CREATININE 0.72 MG/DL (0.43-0.83 MG/DL) BUN/CREATININE RATIO 15.3 (9.1-17.0 ) GLUCOSE 94 MG/DL (65-99 MG/DL) GFR EST NON AFR KITTITIAN >90 ML/MIN GFRA EST AFR AMER >90 ML/MIN CALCIUM 9.1 MG/DL (8.5-10.1 MG/DL) BILIRUBIN TOTAL 0.81 MG/DL (0.20-1.00 MG/DL) TOTAL PROTEIN 8.3 GM/DL H (6.4-8.2 GM/DL) ALBUMIN 4.1 GM/DL (3.4-5.0 GM/DL) GLOBULIN 4.2 GM/DL H (2.3-3.5 GM/DL) A/G RATIO 1.0 MG/DL L (1.5-2.2 MG/DL) ALK PHOS 97 U/L (46-116 U/L) ALT (SGPT) 20 U/L (12-78 U/L) AST (SGOT) 20 U/L (15-37 U/L) LIPASE 159 U/L (73-393 U/L) Hematology from 10/03/2014 6:38 AMWBC 5.8 X10e3/UL (3.6-11.2 X10e3/UL) RBC 4.83 X10e6/UL (3.63-4.92 X10e6/UL) HEMOGLOBIN 14.2 G/DL (11.0-14.3 G/DL) HEMATOCRIT 41.7 % (31.2-41.9 %) MCV 86.4 FL (79.0-98.0 FL) MCH 29.4 PG (27.0-33.0 PG) MCHC 34.0 G/DL (32.0-36.0 G/DL) RDW 12.8 % (12.3-17.0 %) PLATELET 276 X10e3/UL (159-386 X10e3/UL) MPV 9.7 FL (7.4-10.4 FL) AUTOMATED DIFF PERFORMED SEGS 56.1 % LYMPHOCYTES 36.6 % MONOCYTES 5.0 % EOSINOPHILS 1.3 % BASOPHILS 1.0 % ABSOLUTE NEUTROPHILS 3.20 X10e3/UL (1.80-7.80 X10e3/UL) ABSOLUTE LYMPHOCYTES 2.10 X10e3/UL (1.00-3.00 X10e3/UL) ABSOLUTE MONOCYTES 0.30 X10e3/UL (0.30-1.00 X10e3/UL) ABSOLUTE EOSINOPHILS 0.10 X10e3/UL (0.00-0.50 X10e3/UL) ABSOLUTE BASOPHILS 0.10 X10e3/UL (0.00-0.20 X10e3/UL) Urinalysis from 10/03/2014 6:25 AMURINE COLOR YELLOW (STRAW/YELL/DK YELL ) URINE APPEARANCE CLEAR (CLEAR ) URINE PH 5.5 (5.0-8.0 ) URINE SPECIFIC GRAVITY 1.010 (<=1.005->=1.030 ) URINE GLUCOSE NEGATIVE MG/DL (NEGATIVE MG/DL) URINE BILIRUBIN NEGATIVE (NEGATIVE ) URINE KETONES NEGATIVE MG/DL (NEGATIVE MG/DL) URINE BLOOD NEGATIVE (NEGATIVE ) URINE PROTEIN NEGATIVE MG/DL (NEGATIVE MG/DL) URINE UROBILINOGEN 0.2 EU/DL (0.2-1.0 EU/DL) URINE NITRITES NEGATIVE (NEGATIVE ) *URINE LEUKOCYTES NEGATIVE (NEGATIVE ) UR NEGATIVE (NEGATIVE ) Problems Encounter Diagnosis No relevant problems exist. Encounters Encounter Diagnosis No relevant problems exist. Plan of Care Procedures * Completed davinci laparoscopic assisted hysterectomy bilateral salpingectomy right oophorectomy, by MD KEVIN MATUTESAY, on 10/03/2014 1:37 PM * Completed , on 06/09/2009 12:00 AM Immunizations No immunizations administered or ordered. Hospital Course Hospital Discharge Instructions Allergies, Adverse Reactions, Alerts * Penicillins causes Anaphylaxis. * Latex causes Rash. * IV Contrast Allergy has not been assessed. Medication Medication reconciliation has not been performed.
--- OUTSIDE RECORDS SUMMARY | 2016-12-29 07:18 | XMS REPORT | Summary of Care ---
Author Author Kira Santiago, Anamaria [facility] Unknown Address [address] [place], [place] [address] Phone Unavailable Care Team Providers Care Safety Fire Boss Name Role Phone Mulu Ferris M.D. Unavailable [...] in female (625.9, R10.2) Status: Active Vaginal Discharge (623.5, N89.8) Status: Active Medications Name Dates Details Xanax 0.5 MG Oral Tablet TAKE 1/2 TO 1 TABLET BY MOUTH EVERY 6 HOURS NEEDED FOR ANXIETY Quantity: 24 Adonay Ferris M.D.* Started 18-May-2014 ActivePercocet 5-325 MG Oral Tablet * Refills: 0 Shefail Aranda M.D.* Started 05-Apr-2015 ActiveFluconazole 150 MG Oral Tablet TAKE 1 TABLET 1 TIME ONLY. * Quantity: 1 Refills: 0 Anamaria Malone M.D.* Started 13-Apr-2015 Ended 14-Apr-2015 Active Allergies and Adverse Reactions Name Dates [...] Name Dates Details Tdap (Adacel) Lot #: [id number] Administered on:23-Mar-2014 PPD Lot #: [id number] Administered on:17-Apr-2014 PPD Administered on:17-Apr-2014 Fluzone Quadrivalent 0.5 ML Intramuscular Suspension Lot #: [id number] Administered on:18-May-2014 Family History Unknown Family Member* [...] JACKIE SP. PROBE Negative (Better) Range: Negative 13-Apr-2015 15:36 URINE CULTURE [id number] Comments: Searchbox performed at: [place], [facility], [address] [place], [address], Wide Load Escort: Akhil Keen D.O., MPHQuest Collection Date/Time: [id number] Results Received Date/Time: [id number] Reported Date/Time: [id number] CULTURE, URINE, ROUTINE SEE NOTE (Better) Comments: CULTURE, URINE, ROUTINE MICRO NUMBER: [id number] TEST STATUS: FINAL SPECIMEN SOURCE : CLEAN CATCH SPECIMEN QUALITY: ADEQUATE RESULT: No Growth[KS]-- --- Plan of Care Planned Observations* Name Dates [...]
[2016-12-29] MEDS ORDERED: MIDAZOLAM 2mg/2ml INJECTION IV ONE (07:45)
[2016-12-29] MEDS ORDERED: ONDANSETRON 4mg/2ml INJECTION IV ONE (07:45)
[2016-12-29] MEDS ORDERED: LIDOCAINE 1% (10mg/ml) 30ml SDV ONE ×3 (08:10→08:50)
[2016-12-29] MEDS ORDERED: EPINEPHRINE 1mg/ml INJECTION AMP ONE (08:10)
[2016-12-29] MEDS ORDERED: FENTANYL 250mcg/5ml INJECTION ONE (08:35)
[2016-12-29] MEDS ORDERED: SALINE FLUSH 10ml SYRINGE ONE (08:50)
--- NOTE | 2016-12-29 08:55 | ANESPO ---
Post-Op Note Date 12/29/16 Time: 08:54 Status Pt Participated in Evaluation: Pt participated in person Vital Signs Date Time Temp Pulse Resp B/P Pulse Ox O2 Delivery O2 Flow Rate FiO2 12/29/16 07:38 97.9 82 20 131/65 100 Room Air Respiratory Function: Airway patent, Regular respirations Cardiovascular Function: Regular pulse Mental Status: Alert/oriented Pain Level Intensity: 0 Hydration: Taking po fluids, IV infusing Complications during Recovery None apparent Post-Anesthesia Notes pt. asha. well Follow-Up Instructions Instructions Per Surgeon Additional Information none RACHEL SINGH CRNA December 29, 2016 08:55
[2016-12-29] MEDS ORDERED: CLINDAMYCIN 600mg IVPB 50 ML IV ONE (09:00)
[2016-12-29] MEDS ORDERED: LABETALOL 20mg/4ml INJECTION IV ONE (10:40)
[2016-12-29] MEDS ORDERED: FENTANYL 100mcg/2ml INJECTION ONE (12:18)
[2016-12-29] MEDS ORDERED: DEXAMETHASONE 4mg/ml - 1ml INJECTION ONE (12:22)
[2016-12-29] MEDS ORDERED: ONDANSETRON 4mg/2ml INJECTION ONE (12:22)
[2016-12-29] MEDS ORDERED: ONDANSETRON 4mg/2ml INJECTION IV PRN ×2 (13:45→14:00)
--- NOTE | 2016-12-29 13:45 | PDPROCED ---
Procedure Note Date 12/29/16 Procedure Name Right and left reduction mammoplasty (R 373 g; L 424 g); OLIVIER of abdomen, flanks , medial and lateral thighs (Infused 1500 ml; Effluent 1720 ml) Procedure Detail Preop dx: Bilateral symptomatic macromastia; Excess fat of abdomen, flanks, medial and lateral thighs Postop dx: Same Anesthesia: General EBL: Per Anesthesia Case: Clean Complications: None JOANN CHRISTINE MD December 29, 2016 13:45
[2016-12-29] MEDS: HYDROMORPHONE 2mg/ml INJECTION IV PRN ×4 (13:56→14:30)
[2016-12-29] MEDS ORDERED: MORPHINE SULFATE 10 MG SYRINGE IV PRN (14:00)
[2016-12-29] MEDS: DiphenhydrAMINE 50 MG/ML INJECTION IV SCH ×2 (14:27→21:29)
--- NOTE | 2016-12-29 14:30 | ANESPO ---
Post-Op Note Date 12/29/16 Time: 14:28 Status Pt Participated in Evaluation: Pt participated in person Vital Signs Date Time Temp Pulse Resp B/P Pulse Ox O2 Delivery O2 Flow Rate FiO2 12/29/16 14:17 20 12/29/16 13:50 97.4 117 131/86 96 Room Air Respiratory Function: Airway patent, Regular respirations Cardiovascular Function: Regular pulse Mental Status: Alert/oriented Pain Level Intensity: 7 Hydration: Taking po fluids, IV infusing Complications during Recovery None apparent Follow-Up Instructions Instructions Per Surgeon BAILEY GILLILAND CRNA December 29, 2016 14:30
[2016-12-29] MEDS: LR 1,000 ML IV SCH ×2 (14:32→19:10)
[2016-12-29] MEDS: FENTANYL 100mcg/2ml INJECTION IV PRN ×2 (14:37→14:54)
--- NOTE | 2016-12-29 15:20 | NUR ---
ARRIVAL TO FLOOR PT ARRIVED TO THE FLOOR AT THIS TIME. PT ALERT AND ORIENTED X3. VITAL SIGNS STABLE, ON RA. PAIN REPORTED A 5/10 AT THIS TIME. WILL CONTINUE TO MONITOR.
[2016-12-29] MEDS: MORPHINE SULFATE 4 MG SYRINGE IV PRN ×6 (16:03→23:29)
[2016-12-29] MEDS: OXYCODONE/APAP 5mg/325mg TABLET PO PRN ×2 (17:11→21:30)
[2016-12-29] MEDS: CLINDAMYCIN 300 MG IV SCH (17:14)
--- NOTE | 2016-12-29 17:46 | NUR ---
PROGRESS NOTE PT IS ALERT AND ORIENTED X3. VITAL SIGNS ARE STABLE, PT IS ON RA AND CONTINUES ON POST OP VITALS AT THIS TIME. PT HAS BEEN GIVEN ONE DOSE OF MORPHINE 4MG IV AND ONE DOSE OF PERCOCET 5/325MG 1 TAB SINCE ARRIVING TO THE FLOOR FOR INCREASED PAIN. THE PT IS RESTING IN BED AND REPORTS PAIN A 5/10 AT THIS TIME, DESCRIBING PAIN IN HER ABDOMEN AND BREASTS TO BE SHARP AND ACHING AT THIS INCISION SITES. THE PT HAS NOT BEEN OUT OF BED AT THIS TIME AND HAS NOT VOIDED SINCE COMING TO THE FLOOR. NO DRAINAGE VISIBLE TO THE DRESSING SITES AT THIS TIME, WILL CONTINUE TO MONITOR.
--- NOTE | 2016-12-29 20:31 | OPNOTEF ---
DATE OF SURGERY 12/29/2016 SURGEON Gabi Beach MD PREOPERATIVE DIAGNOSES 1. Bilateral symptomatic macromastia. 2. Excess fat of abdomen, flanks, medial and lateral thighs. POSTOPERATIVE DIAGNOSES 1. Bilateral symptomatic macromastia. 2. Excess fat of abdomen, flanks, medial and lateral thighs. OPERATION Right and left reduction mammoplasty. OLIVIER of abdomen, flanks medial and lateral thighs. INFUSED: 1500 mL. EFFLUENT: 1720 mL. INDICATIONS The patient is a 41-year-old G3, P0 woman who presented with the complaint of large breasts as well as excess fat of her abdomen, flanks and thighs. She had had a recent weight loss of 20-30 pounds over the last nine months. She has always had large breasts that were associated with neck, shoulder, and back pain. She develops rashes under her breasts during the summer months that she treats with nystatin. She complains of deep bra-strap grooving. She had physical therapy in 2013 for neck and shoulder pain with some improvement. She frequently uses ibuprofen to help with the discomfort. She is also interested in liposuction of her lower abdomen, flanks, inner and outer thighs. She is displeased with the extra fat of the abdomen and thighs. Her PCP is Maranda Medina APRN. She is presently a 34-36DD and would like to be a cup size B to C postprocedure. She has a family history of breast cancer with a maternal grandmother that was believed to be postmenopausal. On exam, she had pendulous and moderately dense breasts which were slightly asymmetric with the left being larger than the right. There was nodularity throughout without discrete masses. She had grade 3 ptosis. Her abdomen, flanks and thighs had excess fat more so than skin. There was fair skin elasticity of the medial thighs and good skin elasticity of the lateral thighs and the remaining liposuction sites. In detailed discussion with the patient preoperatively, the risks, benefits, and alternatives of the procedures were reviewed including, although not limited to, bleeding, infection , poor or keloid scarring, delayed wound-healing, possible partial or complete loss of skin flaps , altered or absent nipple sensation, inability to breastfeed, residual asymmetry, possible regrowth , rippling, dimpling and residual skin post liposuction. The patient understood and wished to proceed. DESCRIPTION OF OPERATION The patient was marked preoperatively in the upright position and was then brought to the operating room where, after suitable general anesthesia had been obtained, the breasts were prepped and draped in the usual sterile manner. Of note, she received 600 mg of clindamycin preoperatively and wore sequential stockings throughout. First, the breasts were infiltrated with 20 mL each of 0.5% lidocaine with epinephrine. A 6-cm inferior pedicle was then designed using a 38-mm cookie cutter. The breast was placed in a tourniquet and the pedicle was then de-epithelialized. The tourniquet was released and the pedicle was developed down to the level of the chest wall using electrocautery. Hemostasis throughout was obtained using electrocautery. The breast was then elevated at the level of the pectoralis fascia. The excess tissue was then excised and handed off as a specimen. Of note, the right resection weight was 373 g and the left was 424 g, consistent with the preoperative asymmetry. Of note, her Schnur scale for medical necessity was 338 g. The right breast wound was then copiously irrigated and meticulous hemostasis was obtained using electrocautery. It was then temporarily closed over a #10 Rakesh-Arias drain which was brought out laterally after elevation and fixation of the pedicle with interrupted 3-0 PDS. The patient was placed in the upright position to check placement of the nipple-areolar complex and this had been obtained and confirmed, she was returned to the supine position and attention was then turned to the left breast where an identical dissection, resection and closure was performed. The patient was again placed into the upright position to check symmetry. Once this had been obtained and was confirmed, she was returned to the supine position and closure proceeded as follows: The deep portion of the incision was closed in two layers using a running suture of Covidien 3-0 polyglyconate V-Loc suture and the nipple-areolar complex was inset using a running subcuticular suture of 4-0 Monocryl as well as the second layer of the T incision. Benzoin and Steri-Strips were applied as well as a dry sterile dressing, fluffs and a surgical bra. At this time, the abdomen, flanks and thighs were prepped and draped in the usual sterile manner. They were infused with 1500 mL of a mixture of 1 liter of normal saline plus 50 mL of 1% plain lidocaine plus 2 mL of 1:1000 epinephrine. After wait for hemostasis, liposuction was performed with 4 and 5-Fr cannulas with a total effluent of 1720 mL. The wounds were closed with interrupted buried sutures of 4-0 Monocryl. Benzoin and Steri- Strips were applied as well as Epifoam and compression garment. The patient was then straight-catheterized, extubated and brought to the recovery room in stable condition. Estimated blood loss was per Anesthesia. The case was clean. Specimens were the right and left breast portions of. MTDD
[2016-12-29] MEDS ORDERED: LR 1,000 ML IV SCH (22:00)
--- NOTE | 2016-12-29 23:45 | NUR ---
REPORT REPORT RECEIVED FROM SHI TAN AT THIS TIME. PT CARE TAKEN OVER AT THIS TIME BY SHI ZHONG.
[2016-12-30] MEDS: CLINDAMYCIN 300 MG IV SCH (00:16)
[2016-12-30] MEDS: MORPHINE SULFATE 4 MG SYRINGE IV PRN ×3 (01:11→05:21)
[2016-12-30] MEDS: OXYCODONE/APAP 5mg/325mg TABLET PO PRN ×3 (01:11→11:33)
--- NOTE | 2016-12-30 02:11 | NUR ---
Chart Check 24 hour chart check completed
[2016-12-30] MEDS: DiphenhydrAMINE 50 MG/ML INJECTION IV SCH (03:57)
[2016-12-30 04:03] VITALS: BP 96/54; PULSE 89; RESP 16; TEMP 97.5; O2SAT 98
--- NOTE | 2016-12-30 05:03 | NUR ---
SHIFT SUMMARY PT IS ALERT AND ORIENTED X 3. PT SLEPT OFF AND ON DURING THE NIGHT. PT GIVEN PERCOCET AND MS FOR PAIN, SEE EMAR FOR TIMES. PT GIVEN ZOFRAN EARLIER IN SHIFT FOR NAUSEA. VSS, ON RA. PT REQUESTING SOFT DIET THIS MORNING. UP TO BATHROOM WITH ASSIST X ONE, ADEQUATE OUTPUT. LILIANA DRAINS X 2 WITH MINIMAL OUTPUT OF SEROSANGINEOUS DRAINAGE. LR RUNNING @ 75ML/HR IN RIGHT HAND. DRESSINGS OVER BILAT BREASTS C/D/I. DRESSING ON LEFT LATERAL THIGH WITH MINIMAL TO MODERATE DRAINAGE WHEN PT UP TO BATHROOM AND STOPS BLEEDING ONCE IN BED. ICE PACKS ON ABDOMEN AND CHEST. BED LOCKED AND LOW, BED ALARM ON. CALL LIGHT WITHIN REACH. DAUGHTER AT BEDSIDE. WILL CONTINUE TO MONITOR.
[2016-12-30 07:32] VITALS: BP 113/59; PULSE 90; RESP 16; O2SAT 98
[2016-12-30 07:41] VITALS: PULSE 90; RESP 16
[2016-12-30] MEDS ORDERED: FERROUS SULFATE 324 MG TABLET PO SCH (08:00)
[2016-12-30] MEDS ORDERED: OXYC1TAB8 PO (08:45)
[2016-12-30] MEDS ORDERED: CYCL5TAB PO (08:45)
[2016-12-30] MEDS ORDERED: ONDA4TAB4 PO (08:45)
[2016-12-30] MEDS ORDERED: CLIN-89 PO (08:45)
--- NOTE | 2016-12-30 10:04 | NUR ---
CM SPOKE WITH PT, AND DAUGHTER PRESENT WITH PT'S PERMISSION. INTRODUCED SELF, EXPLAINED ROLE, PROVIDED CONTACT INFO. PT STATED HER DC PLAN IS TO RETURN HOME. SHE DENIED HAVING ANY DC NEEDS AND STATED THAT HER , DAUGHTER, AND MOM WILL ALL BE HELPING HER AT HOME NEEDED. PT WAS ENCOURAGED TO CALL IF ANY QUESTIONS/NEEDS DO COME UP. Addendum: 12/30/16 at 1005 by DELBERT FARMER Amended: Links added.
--- NOTE | 2016-12-30 10:05 | NUR ---
GINETTE DAY IS 1. NO FURTHER INTERVENTION AT THIS TIME. Addendum: 12/30/16 at 1005 by DELBERT FARMER Amended: Links added.
--- NOTE | 2016-12-30 11:34 | NUR ---
DISCHARGE PATIENT IS ALERT AND ORIENTED X3. PATIENT VITALS ARE STABLE AND PATIENT IS ON ROOM AIR. PATIENT DENIES CP, NAUSEA, AND SOA. PATIENT DISCHARGE INSTRUCTIONS INCLUDE: NEW MEDICATIONS, CONTINUED MEDICATIONS, SIGNS AND SYMPTOMS OF INFECTION, DI FOR LOVELLE, DI FOR LILIANA DRAIN MANAGEMENT AND CARE, ACTIVITY/BATHING, DIET, REASONS TO CALL DOCTOR AND/OR SEEK IMMEDIATE CARE, FOLLOW UP APPOINTMENT, AND INCISION/STERI STRIP CARE. SCRIPTS PREVIOUSLY GIVEN TO PATIENT BEFORE SURGERY. PERSONAL BELONGINGS RETURNED. IV DISCONTINUED. PATIENT LEFT VIA WHEELCHAIR AND NURSING STAFF THROUGH ER ENTRANCE. PATIENT TRANSPORTED HOME FOR SELF CARE BY DAUGHTER.
--- NOTE | 2017-01-01 14:54 | NUR ---
ATTEMPTED POST HOSPITAL FOLLOW UP PHONE CALL #1, NO ANSWER, LEFT VOICE MESSAGE TO RETURN CALL TO CM.
== END 2016-12-30 11:34 | disposition home or self-care (01) ==
LOC: SCU 07:05 → SRG 07:05 → SCU 12-30 11:34
PROVIDERS: ATTEND Surgery Plastic and Reconstructive Surgery
DX: N62 Hypertrophy of breast (principal); N64.89 Other specified disorders of breast; N64.81 Ptosis of breast; L30.4 Erythema intertrigo; E65 Localized adiposity; M54.89 Other dorsalgia; M54.2 Cervicalgia; Z80.3 Family history of malignant neoplasm of breast
CPT/HCPCS: 15877; 15879; 19318; J0171; J1100; J1170; J1200; J2250; J2405; J3010; J7120; S0077